=== PATIENT | female | born 1985 | race Caucasian/White ===

== ENCOUNTER 2019-12-28 | Outpatient (REF) | payer OTHER, SELFPAY | END 2019-12-28 00:01 | disposition home or self-care (01) | LOC: HO.LNP | PROVIDERS: Visit Provider Nurse Practitioner Family | DX: N39.0 Urinary tract infection, site not specified (principal) | CPT/HCPCS: 87086; 87088; 87186 ==

== ENCOUNTER 2020-04-12 08:34 | Outpatient (REF) | payer OTHER, SELFPAY ==
[2020-04-12 09:49] LABS: Hematocrit 41.8 % (37-47); Hemoglobin 13.7 g/dl (12.0-16.0)
[2020-04-12 10:29] LABS: Alanine Aminotransferase 15 U/L (0-31); Albumin Level 4.2 g/dL (3.5-5.0); Alkaline Phosphatase 80 U/L (39-117); Anion Gap 12 (12-20); Aspartate Amino Transferase 14 U/L (5-31); Bilirubin Direct 0.2 mg/dL (0.0-0.5); Bilirubin Total 0.7 mg/dL (0.0-1.0); Blood Urea Nitrogen 15 mg/dL (9-16); Calcium 9.1 mg/dL (8.4-10.2); Carbon Dioxide 28 mmol/L (22-29); Chloride 106 mmol/L (96-108); Cholesterol 199 mg/dL; Estimated Glomerular Filt Rate > 60; Glucose Fasting 95 mg/dL (60-99); HDL Cholesterol 36 mg/dL; LDL Cholesterol Calculated 146 mg/dl; Potassium 4.6 mmol/L (3.3-5.1); Sodium 141 mmol/L (135-145); Total Protein 6.8 g/dL (6.5-8.0); Triglycerides 86 mg/dL
[2020-04-15 06:12] LABS: HPV mRNA E6/E7 rflx Not Detected (Not Detected)
== END 2020-04-12 08:35 | disposition home or self-care (01) ==
LOC: HO.LAB 08:34
PROVIDERS: Absent Provider Internal Medicine; PCP Internal Medicine; Visit Provider Obstetrics & Gynecology
DX: Z01.411 Encounter for gynecological examination (general) (routine) with abnormal findings (principal); Z00.01 Encounter for general adult medical examination with abnormal findings; Z11.51 Encounter for screening for human papillomavirus (HPV); D21.9 Benign neoplasm of connective and other soft tissue, unspecified; N63.10 Unspecified lump in the right breast, unspecified quadrant; R20.2 Paresthesia of skin
CPT/HCPCS: 36415; 80048; 80061; 80076; 85014; 85018; 87624; 88142

== ENCOUNTER 2020-04-19 13:58 | Outpatient (REF) | payer OTHER, SELFPAY ==
--- NOTE | ~2020-04-19 | US_ITS ---
EXAMINATION: ULTRASOUND PELVIS COMPLETE. CLINICAL INFORMATION: Benign neoplasm of connective soft tissue. COMPARISON: Ultrasound pelvis 10/06/2017 TECHNIQUE: Transabdominal and transvaginal ultrasound of the pelvis is performed. FINDINGS: The uterus is anteverted and anteflexed measuring 10.0 cm in length, 3.4 cm in AP and 5.0 cm in transverse dimension. The endometrial thickness is 0.56 cm. There is a hypoechoic lesion in the right fundus measuring 1.7 x 1.2 x 1.2 cm. Previously it measured 1.6 x 1.2 x 1.4 cm. There are small nabothian cysts seen in the cervix. The right ovary measures 3.7 x 2.8 x 2.9 cm and volume 15.7 mL. It appears unremarkable. Previously right ovary measured 3.9 x 2.7 x 3.6 cm and 20.2 mL volume. Left ovary measures 3.2 x 1.5 x 2.2 cm and volume 5.5 mL. There is an echogenic corpus luteal scar measuring 0.6 x 0.4 x 0.4 cm. Previously left ovary measures 4.0 x 1.9 x 2.8 cm. There is a small amount of free fluid in the cul-de-sac. US/US pelvic complete IMPRESSION: 1. Small uterine fibroid. 2. Small nabothian cysts in the cervix. 3. Echogenic corpus luteal scar measuring 0.6 x 0.4 x 0.4 cm in left ovary.
--- NOTE | ~2020-04-19 | US_ITS ---
EXAMINATION: ULTRASOUND PELVIS COMPLETE. CLINICAL INFORMATION: Benign neoplasm of connective soft tissue. COMPARISON: Ultrasound pelvis 10/06/2017 TECHNIQUE: Transabdominal and transvaginal ultrasound of the pelvis is performed. FINDINGS: The uterus is anteverted and anteflexed measuring 10.0 cm in length, 3.4 cm in AP and 5.0 cm in transverse dimension. The endometrial thickness is 0.56 cm. There is a hypoechoic lesion in the right fundus measuring 1.7 x 1.2 x 1.2 cm. Previously it measured 1.6 x 1.2 x 1.4 cm. There are small nabothian cysts seen in the cervix. The right ovary measures 3.7 x 2.8 x 2.9 cm and volume 15.7 mL. It appears unremarkable. Previously right ovary measured 3.9 x 2.7 x 3.6 cm and 20.2 mL volume. Left ovary measures 3.2 x 1.5 x 2.2 cm and volume 5.5 mL. There is an echogenic corpus luteal scar measuring 0.6 x 0.4 x 0.4 cm. Previously left ovary measures 4.0 x 1.9 x 2.8 cm. There is a small amount of free fluid in the cul-de-sac. US/US transvaginal IMPRESSION: 1. Small uterine fibroid. 2. Small nabothian cysts in the cervix. 3. Echogenic corpus luteal scar measuring 0.6 x 0.4 x 0.4 cm in left ovary.
== END 2020-04-19 13:59 | disposition home or self-care (01) ==
LOC: HO.US 13:58
PROVIDERS: Visit Provider Obstetrics & Gynecology
DX: D21.9 Benign neoplasm of connective and other soft tissue, unspecified (principal)
CPT/HCPCS: 76830; 76856

== ENCOUNTER → 2020-04-26 14:16 | Outpatient (BNVA) | payer OTHER, SELFPAY | PROVIDERS: PCP Internal Medicine; Visit Provider Obstetrics & Gynecology ==

== ENCOUNTER 2020-05-09 13:46 | Outpatient (REF) | payer OTHER, SELFPAY ==
--- NOTE | ~2020-05-09 | US_ITS ---
EXAMINATION: RIGHT BREAST ULTRASOUND CLINICAL INFORMATION: Lump 10:00 position right breast COMPARISON: Ultrasound of July 28, 2008 TECHNIQUE: Targeted ultrasound evaluation about the lateral aspect of the right breast FINDINGS: Targeted right breast ultrasound does not demonstrate any abnormal cystic or solid mass. No region of abnormal distal sound shadowing is seen. There is dense breast parenchyma present in region of palpable abnormality. Results are discussed with the patient at time of visit. US/US breast RT limited IMPRESSION: No suspicious right breast mass is identified. Probably benign left breast calcifications. Probably benign asymmetric parenchymal pattern inferior aspect of the left breast which can be reimaged at time of 6 month follow-up calcifications. ASSESSMENT: BI-RADS 3: Probably Benign RECOMMENDATION: Diagnostic mammography in 6 months. Left breast. Clinical follow-up for right breast lump.
--- NOTE | ~2020-05-09 | MM_ITS ---
EXAMINATION: MM DIAGNOSTIC DIGITAL BREAST TOMOSYNTHESIS, BILATERAL TARGETED RIGHT BREAST ULTRASOUND CLINICAL INFORMATION: Right breast lump. The lifetime risk of breast cancer based on the Tyrer-Cuzick Model is 12.1%. COMPARISON: Mammography: Ultrasound of 07/28/2008. TECHNIQUE: Digital breast tomosynthesis is performed in both the craniocaudal and mediolateral oblique views along with computer-aided detection (CAD). Synthesized 2D images are generated from the tomosynthesis. Additional spot magnification views of the left breast in craniocaudal and 90 degree mediolateral views performed. FINDINGS: The breasts are extremely dense, which lowers the sensitivity of mammography (ACR BI-RADS breast composition Category d). The right breast demonstrates normal parenchymal pattern without new abnormal dominant mass or suspicious grouping of microcalcifications. No region of architectural distortion is seen within the right breast. Within the left breast there are some loosely grouped calcifications within the lateral aspect for which spot magnification views were performed. There are no linear or branching forms. No change in characteristic to suggest tea-cupping with milk of calcium is seen. There is question of some architectural distortion about the inferior aspect of the left breast on the 90 degree spot magnification views but which on other imaging appears to represent superimposition of fibroglandular tissue. Both of these findings can be followed up with 6 month left breast mammogram to include spot magnification views. Targeted right breast ultrasound does not demonstrate any abnormal cystic or solid mass. No region of abnormal distal sound shadowing is seen. There is dense breast parenchyma present in region of palpable abnormality. Results are discussed with the patient at time of visit. MM/MM tomosynthesis diagnostic BI IMPRESSION: No suspicious right breast mass is identified. Probably benign left breast calcifications. Probably benign asymmetric parenchymal pattern inferior aspect of left breast which can be reimaged at time of six-month follow-up calcifications. ASSESSMENT: BI-RADS 3: Probably Benign. RECOMMENDATION: Diagnostic mammography in six months left breast. Clinical followup for right breast lump. This patient's information was entered into a reminder system with a target due date for their next mammogram.
== END 2020-05-09 13:47 | disposition home or self-care (01) ==
LOC: HO.MAMMO 13:46
PROVIDERS: Visit Provider Obstetrics & Gynecology
DX: N63.11 Unspecified lump in the right breast, upper outer quadrant (principal)
CPT/HCPCS: 76641; 76642; 77062; 77066

== ENCOUNTER → 2020-05-17 13:19 | Outpatient (BNVA) | payer OTHER, SELFPAY | PROVIDERS: PCP Internal Medicine; Visit Provider Surgery ==

== ENCOUNTER 2020-10-12 10:56 | Outpatient (REF) | payer OTHER, SELFPAY ==
--- NOTE | ~2020-10-12 | MM_ITS ---
EXAMINATION: MM DIAGNOSTIC DIGITAL BREAST TOMOSYNTHESIS, LEFT CLINICAL INFORMATION: Short interval six-month follow-up diagnostic imaging for calcifications central outer left breast and question of asymmetric density lower breast. Age 35. No known family history breast cancer. The lifetime risk of breast cancer based on the Tyrer-Cuzick Model is 11%. COMPARISON: Mammography: 05/09/2020 (diagnostic, BI-RADS 3). TECHNIQUE: Digital breast tomosynthesis is performed in both the craniocaudal and mediolateral oblique views along with computer-aided detection (CAD). Synthesized 2D images are generated from the tomosynthesis. Additional magnification CC and magnification ML views are obtained. FINDINGS: The breasts are heterogeneously dense, which may obscure small masses (ACR BI-RADS breast composition Category c). There is no architectural abnormality. There is no interval mass or developing density. Punctate calcifications central and outer left breast are stable from prior diagnostic exam and will be reassessed again in 6 months at 12 month follow-up exam. The axilla and skin contours are unremarkable. Results are provided to the patient at time of visit by the technologist. MM/MM tomosynthesis diagnostic LT IMPRESSION: 1. No architectural abnormality. 2. Probable benign punctate left breast calcifications stable from prior diagnostic exam. ASSESSMENT: BI-RADS 3: Probably Benign RECOMMENDATION: Diagnostic mammography in 6 months to include magnification views left breast. This patient's information was entered into a reminder system with a target due date for their next mammogram.
== END 2020-10-12 10:57 | disposition home or self-care (01) ==
LOC: HO.MAMMO 10:56
PROVIDERS: PCP Internal Medicine; Visit Provider Obstetrics & Gynecology
DX: N64.89 Other specified disorders of breast (principal); R30.0 Dysuria
CPT/HCPCS: 77061; 77065; 87086; 87088; 87186

== ENCOUNTER 2020-11-29 10:26 | Emergency (ER) | payer OTHER, SELFPAY ==
--- NOTE | ~2020-11-29 | XR_ITS ---
EXAMINATION: XR CHEST CLINICAL INFORMATION: Cough COMPARISON: CXR from 07/31/2009 TECHNIQUE: Frontal view of the chest was obtained. FINDINGS: Lungs are well-inflated and clear. Trachea is midline in position. No interstitial disease, consolidation or mass. No pulmonary edema, pleural effusion or pneumothorax. Cardiac silhouette and pulmonary vessels are normal in size. The mediastinum and jose have normal contour. The right diaphragm is slightly elevated and has normal contour. The visualized bones, and upper abdomen, are unremarkable. XR/XR chest 1V IMPRESSION: No evidence of pneumonia. No acute cardiopulmonary abnormality.
[2020-11-29 10:41] VITALS: BP 113/49; PULSE 87; RESP 19; TEMP 36.1; O2SAT 99
--- NOTE | 2020-11-29 10:55 | PC.NURSE ---
pt states head cold 2 weeks ago. Had Covid in September. Discussed vaccination. Pt with cough, denies fevers. Lungs with diminished BS R>L. Awaiting provider eval.
[2020-11-29 11:13] LABS: COVID-19 Test Negative (Negative)
--- NOTE | 2020-11-29 11:26 | ED.URI ---
HPI - URI/Sore Throat General Chief Complaint: Upper Respiratory Symptoms Stated Complaint: COUGH CHEST TIGHTNESS Time Seen by Provider: 11/29/20 11:23 Source: patient Mode of arrival: ambulatory Limitations: no limitations History of Present Illness MD elicited complaint: cough and other (URI symptoms) Pertinent past history: other (COVID in september) Onset (ago): day(s) (several) Consistency: constant Severity: moderate Able to tolerate fluids by mouth: Yes Exacerbating factors: nothing Relieving factors: nothing Associated symptoms: rhinorrhea, cough and shortness of breath Treatments prior to arrival: none Related Data Previous Rx's Medication Instructions Recorded sulfamethoxazole 800 1 tab PO BID #14 tab 10/12/20 mg-trimethoprim 160 mg tablet (Bactrim DS) amoxicillin 875 mg-potassium 1 tab PO BID #14 tab 11/29/20 clavulanate 125 mg tablet (Augmentin) prednisone 20 mg tablet 40 mg PO DAILY 4 Days #8 tab 11/29/20 Allergies Allergy/AdvReac Type Severity Reaction Status Date / Time No Known Allergies Allergy Verified 11/29/20 10:41 [No Known Allergies*] Review of Systems Review of Systems: Constitutional : No Fever, No Chills ENT/Mouth : No Hoarseness, No sore throat, No Rhinorrhea Eyes: No Redness, No Discharge, No Vision Changes Cardiovascular : No Chest Pain, positive SOB, positive Dyspnea on Exertion, No Edema Respiratory : positive Cough, No Sputum, positive Wheezing, Gastrointestinal : No Nausea, No Vomiting, No Diarrhea, No abdominal Pain Genitourinary : No Dysuria, No Hematuria Musculoskeletal : No joint pain, No Myalgias Skin : No rash Neuro : No Weakness, No Numbness, No Headache Psych : No anxiety, depression Heme/Lymph: No Bruising, No Bleeding Endocrine : No Polyuria, No Polydipsia All other systems reviewed and are negative PMFSH Past Medical History Attestation statement: The following information was validated with the patient. Surgical History History of section History of tonsillectomy Family History Family History Father Hepatitis HIV (human immunodeficiency virus infection) Mother No problems noted. Maternal Grandmother Diabetes mellitus Skin cancer Maternal Grandfather Throat cancer Paternal Grandmother Diabetes mellitus Paternal Grandfather Diabetes mellitus Sister No problems noted. Sister No problems noted. Social History Social History Alcohol intake: current Alcohol intake frequency: holidays/special occasions only Patient Tobacco Use Status: Never used Tobacco Advance Directives: No Physical Exam Vital Signs: Vital Signs: Last Vital Signs Temp 97.0 F 11/29/20 10:41 Pulse 87 11/29/20 10:41 Resp 19 11/29/20 10:41 BP 113/49 L 11/29/20 10:41 Pulse Ox 99 11/29/20 10:41 Body Mass Index 0.2 Appearance: Alert. Oriented X3. No acute distress. Eyes: Pupils equal, round and reactive to light. ENT: Pharynx normal. Neck: Normal inspection. Neck supple. CVS: Normal heart rate and rhythm. Pulses normal. Respiratory: No respiratory distress. Breath sounds mild end exp wheezes and rhonchi no distress Abdomen: Soft and nontender. Skin: Skin warm and dry. Normal skin color. Normal skin turgor. Extremities: No lower extremity edema. No calf ttp Neuro: Oriented X 3. No motor deficit. No sensory deficit. MDM - URI/Sore Throat MDM Narrative Medical decision making narrative: 35 yo female with a cough here with some wheezing and symptoms for the last several days - at this time will need CXR, COVID swab, INH / steroids/ augmentin suspect bronchitis at this time - no hypoxia Lab Data Labs: Lab Results 11/29/20 Range/Units 10:46 COVID-19 (JOHN) Negative (Negative) COVID-19 Clin Com See Note Discharge Plan Discharge Clinical Impression: Bronchitis Patient Disposition: Home, Self-Care Instructions: Acute Bronchitis (ED) Additional Instructions: return to ED for any worsening symptoms or concerns USE INHALER 2 PUFFS EVERY 4 HOURS FOR COUGH AND WHEEZING NEGATIVE FOR COVID Prescriptions: New prednisone 20 mg tablet 40 mg PO DAILY 4 Days Qty: 8 RF: 0 amoxicillin-pot clavulanate [Augmentin] 875-125 mg tablet 1 tab PO BID Qty: 14 RF: 0 No Action sulfamethoxazole-trimethoprim [Bactrim DS] 800-160 mg tablet 1 tab PO BID Qty: 14 RF: 0 Referrals: Nedra York MD [Primary Care Provider] - 2 days (IF NOT BETTER) Stand Alone Forms: Work/School Release
[2020-11-29] MEDS: Amoxicillin/Potassium Clav 875 MG TABLET PO (12:01)
[2020-11-29] MEDS: Albuterol Sulfate 90 MCG 8 GM INHALER 2 PUFF INHALE (12:01)
[2020-11-29] MEDS: predniSONE 20 MG TABLET 40 MG PO (12:01)
== END 2020-11-29 12:38 | disposition home or self-care (01) ==
PROVIDERS: Emergency Provider Emergency Medicine; PCP Internal Medicine
DX: J40 Bronchitis, not specified as acute or chronic (principal); Z20.822 Contact with and (suspected) exposure to COVID-19
CPT/HCPCS: 36415; 71045; 87635; 99282; 99284

== ENCOUNTER 2020-12-14 22:00 | Emergency (ER) | payer OTHER, SELFPAY ==
[2020-12-14 22:27] VITALS: BP 126/75; PULSE 98; RESP 18; TEMP 36.8; O2SAT 95; BMI 26.5
[2020-12-14 22:54] LABS: COVID-19 Test Negative (Negative); IDNOW Serial# 55D5AD1C
--- NOTE | 2020-12-14 23:28 | ED_ITS ---
HPI - URI/Sore Throat General Chief Complaint: Upper Respiratory Symptoms Stated Complaint: ?Bronchitis Time Seen by Provider: 12/14/20 23:14 Source: patient Mode of arrival: ambulatory Limitations: no limitations History of Present Illness HPI Narrative: Patient comes emergency room complaining of chest tightness, intermittent wheezing. Patient states that since she was diagnosed with COVID- 19, she has had multiple episodes asthma like exacerbations, patient does not have a diagnosis of asthma. Patient states that 3 weeks ago she finished a course of antibiotics, prednisone and recently ran out of albuterol. Patient denies chest pain, no shortness of breath at this time. Related Data Previous Rx's Medication Instructions Recorded sulfamethoxazole 800 1 tab PO BID #14 tab 10/12/20 mg-trimethoprim 160 mg tablet (Bactrim DS) amoxicillin 875 mg-potassium 1 tab PO BID #14 tab 11/29/20 clavulanate 125 mg tablet (Augmentin) prednisone 20 mg tablet 40 mg PO DAILY 4 Days #8 tab 11/29/20 albuterol sulfate 90 mcg/actuation 2 puff INHALATION Q4-6H PRN #8.5 g 12/14/20 aerosol inhaler prednisone 50 mg tablet 50 mg PO DAILY #5 tab 12/14/20 Allergies Allergy/AdvReac Type Severity Reaction Status Date / Time No Known Allergies Allergy Verified 11/29/20 10:41 [No Known Allergies*] Review of Systems Review of Systems: Constitutional : No Weight loss, No Fever, No Chills, No Night Sweats, No Fatigue, No Malaise ENT/Mouth : No Hearing loss, No Ear Pain, No Nasal Congestion, No Sinus Pain, No Hoarseness, No sore throat, No Rhinorrhea, No Swallowing Difficulty Eyes: No Eye Pain, No Swelling, No Redness, No Foreign Body, No Discharge, No Vision Changes Cardiovascular : No Chest Pain, No SOB, No Dyspnea on Exertion, No Orthopnea, No Edema, No Palpitations Respiratory : Cough improving, intermittent wheezing, No Smoke Exposure, No Dyspnea Gastrointestinal : No Nausea, No Vomiting, No Diarrhea, No Constipation, No abdominal Pain, No Hematochezia, No Melena Genitourinary : no irregular bleeding, No Dysuria, No Urinary Frequency, No Hematuria, No Urinary Incontinence, No Urgency, No Flank Pain, No Urinary Flow Changes, No Hesitancy Musculoskeletal : No joint pain, No Myalgias, No Joint Swelling Skin : No Skin Lesions, No rash Neuro : No Weakness, No Numbness, No Paresthesias, No Loss of Consciousness, No Dizziness, No Headache Psych : No Anxiety/Panic, No Depression, No SI/HI/AH/VH, No Social Issues, Heme/Lymph: No Bruising, No Bleeding,No Lymphadenopathy Endocrine : No Polyuria, No Polydipsia, No Temperature Intolerance [facility] Past Medical History Surgical History History of section History of tonsillectomy Family History Family History Father Hepatitis HIV (human immunodeficiency virus infection) Mother No problems noted. Maternal Grandmother Diabetes mellitus Skin cancer Maternal Grandfather Throat cancer Paternal Grandmother Diabetes mellitus Paternal Grandfather Diabetes mellitus Sister No problems noted. Sister No problems noted. Social History Social History Alcohol intake: current Alcohol intake frequency: holidays/special occasions only Patient Tobacco Use Status: Never used Tobacco Advance Directives: No Advance Directives Information Provided: No Patient : No Physical Exam Vital Signs: Vital Signs: Last Vital Signs Temp 98.3 F 12/14/20 22:27 Pulse 98 12/14/20 22:27 Resp 18 12/14/20 22:27 BP 126/75 12/14/20 22:27 Pulse Ox 95 12/14/20 22:27 Body Mass Index 26.5 Const: Other: Appearance: Alert. Oriented X3. No acute distress. Eyes: Pupils equal, round and reactive to light. ENT: Pharynx normal. Neck: Normal inspection. Neck supple. No lymph nodes noted. No crepitus CVS: Normal heart rate and rhythm. Pulses normal. Normal S1 and S2 Respiratory: Bilateral mild wheezing Abdomen: Soft and nontender. No rigidity. No distention. good BS x4 Skin: Skin warm and dry. Normal skin color. Normal skin turgor. Extremities: No lower extremity edema. No lower extremity edema. No Lacerations. No Rash Neuro: Oriented X 3. No motor deficit. No sensory deficit. Moving all extermities. No slurred speech. Course Course Course Narrative: It is possible that patient may have developed asthma after she had COVID. At this time, patient does not need a breathing treatment. Patient will benefit from another course of antibiotics. MDM - URI/Sore Throat Lab Data Labs: Lab Results 12/14/20 Range/Units 22:34 COVID-19 ([facility]OHN) Negative (Negative) COVID-19 Clin Com See Note Discharge Plan Discharge Clinical Impression: Bilateral wheezing Patient Disposition: Home, Self-Care Instructions: Wheezing (ED) Additional Instructions: Please follow-up with your primary care physician tomorrow. If you have any worsening or new symptoms, please return to the emergency room or call 911 Prescriptions: New prednisone 50 mg tablet 50 mg PO DAILY Qty: 5 RF: 0 albuterol sulfate 90 mcg/actuation HFA aerosol inhaler 2 puff inhalation Q4-6H PRN (Reason: shortness of breath or wheezing) Qty: 8.5 RF: 0 No Action prednisone 20 mg tablet 40 mg PO DAILY 4 Days Qty: 8 RF: 0 amoxicillin-pot clavulanate [Augmentin] 875-125 mg tablet 1 tab PO BID Qty: 14 RF: 0 sulfamethoxazole-trimethoprim [Bactrim DS] 800-160 mg tablet 1 tab PO BID Qty: 14 RF: 0
== END 2020-12-15 00:29 | disposition home or self-care (01) ==
PROVIDERS: Emergency Provider Emergency Medicine; PCP Internal Medicine
DX: R06.2 Wheezing (principal); Z86.16 Personal history of COVID-19; Z20.822 Contact with and (suspected) exposure to COVID-19
CPT/HCPCS: 36415; 87635; 99283

== ENCOUNTER 2021-05-09 12:32 | Outpatient (REF) | payer OTHER, SELFPAY ==
--- NOTE | ~2021-05-09 | MM_ITS ---
EXAMINATION: MM DIAGNOSTIC DIGITAL BREAST TOMOSYNTHESIS, BILATERAL CLINICAL INFORMATION: 1 year follow-up probable benign calcifications central outer left breast. Age 36. TC score 11.3%. COMPARISON: Mammography: 10/12/2020, 05/09/2020 (diagnostic, BI-RADS 3). TECHNIQUE: Digital breast tomosynthesis is performed in both the craniocaudal and mediolateral oblique views along with computer-aided detection (CAD). Synthesized 2D images are generated from the tomosynthesis. Additional magnification left CC and magnification left ML views are obtained. FINDINGS: The breasts are heterogeneously dense, which may obscure small masses (ACR BI-RADS breast composition Category c). Parenchymal pattern is similar to previous exam. There is no interval mass or architectural abnormality or developing density. The benign-appearing punctate calcifications posterior 3:30 position are stable from prior diagnostic exam. There is no interval grouping or pleomorphic types or ductal distribution. Results are provided to the patient at time of visit by the technologist. MM/MM tomosynthesis diagnostic BI IMPRESSION: No significant change from prior exams. Benign-appearing punctate calcifications posterior outer left breast stable. ASSESSMENT: BI-RADS 3: Probably Benign RECOMMENDATION: Bilateral diagnostic mammography in 12 months to include magnification views left breast. This patient's information was entered into a reminder system with a target due date for their next mammogram.
== END 2021-05-09 12:33 | disposition home or self-care (01) ==
LOC: HO.MAMMO 12:32
PROVIDERS: Visit Provider Obstetrics & Gynecology
DX: R92.1 Mammographic calcification found on diagnostic imaging of breast (principal)
CPT/HCPCS: 77062; 77066

== ENCOUNTER 2021-11-23 22:46 | Emergency (ER) | payer OTHER, SELFPAY ==
--- NOTE | ~2021-11-23 | CT_ITS ---
EXAMINATION: CT ABDOMEN AND PELVIS WITH CONTRAST CLINICAL INFORMATION: Bilateral flank pain, UTI, question pyelonephritis COMPARISON: None TECHNIQUE: Multidetector volumetric images were obtained from the superior aspect of the liver through the pubic symphysis following administration 85 mL of Omnipaque 350 intravenous contrast. Sagittal and coronal reformatted images were obtained on the technologist's workstation. Oral contrast: No This CT examination was performed using dose optimization techniques as appropriate, variously including the following: *Automated exposure control *Adjustment of mA and/or kV according to patient size (this includes techniques or standardized protocols for targeted exams where dose is matched to indication/reason for exam; i.e. extremities or head) *Use of iterative reconstruction technique DLP: 479 mGy-cm FINDINGS: LUNG BASES: The visualized lung bases are unremarkable. LIVER, GALLBLADDER, AND BILIARY TREE: The liver is normal in size, shape, and attenuation. There is a nonspecific mildly hypodense lesion at the junction of segments 8 and 5 measuring 1.1 cm in diameter. No biliary ductal dilatation is present. The gallbladder is unremarkable. PANCREAS: Unremarkable. SPLEEN: Unremarkable. ADRENAL GLANDS: Unremarkable. KIDNEYS AND URETERS: Bilateral nephrograms are symmetric. No hydronephrosis or obstructing calculus. BLADDER: Partially distended with a diffusely thickened appearance. GASTROINTESTINAL TRACT: No evidence of bowel obstruction or significant wall thickening. Moderate stool throughout the colon. The appendix is unremarkable. No free fluid or free air is seen. ABDOMINAL WALL: No significant hernia is appreciated. LYMPH NODES: Normal. VASCULAR: Unremarkable. PELVIC VISCERA: Unremarkable. OSSEOUS STRUCTURES: Unremarkable. CT/CT abdomen pelvis w IV con IMPRESSION: 1. Thick-walled appearance of the urinary bladder, raising suspicion for cystitis. No specific findings in the kidneys to suggest pyelonephritis. 2. Nonspecific mildly hypodense hepatic lesion measuring 1.1 cm, which could represent a hemangioma. Further evaluation with ultrasound is recommended; if it remains indeterminate, MRI would then be advised.
[2021-11-23 22:58] VITALS: BP 146/95; PULSE 102; RESP 17; TEMP 37.1; O2SAT 98; BMI 26.5
[2021-11-23 23:28] LABS: Basophils Absolute Auto 0.1 X10*3/uL (0.0-0.2); Basophils Percent Auto 0.5 % (0-2); Eosinophils Absolute Auto 0.3 X10*3/uL (0.0-0.4); Eosinophils Percent Auto 1.5 % (0-4); Hematocrit 39.2 % (37.0-47.0); Hemoglobin 13.2 g/dl (12.0-16.0); Imm Gran Abs Auto 0.07 X10*3/uL (0.00-0.03); Imm Gran Pct Auto 0.4 % (0.0-0.4); Lymphocytes Absolute Auto 3.4 X10*3/uL (1.2-4.9); MANUAL DIFF FLAG NO; Mean Corpuscular HGB Conc 33.7 g/dl (31.0-35.0); Mean Corpuscular Volume 89.1 fL (80.0-98.0); Mean Platelet Volume 10.5 fL (9.4-12.3); Monocytes Absolute Auto 1.1 X10*3/uL (0.1-1.2); Monocytes Percent Auto 6.6 % (2-11); Neutrophils Absolute Auto 12.1 x10*3/uL (2.0-8.3); Platelet Count 282 X10*3/uL (160-400); Red Cell Distribution Width 12.8 % (11.0-16.0); White Blood Count 17.1 X10*3/uL (4.8-10.8)
[2021-11-23 23:29] LABS: Appearance Urine Turbid; Color Urine Dark Yellow; Glucose Urine UA Negative (Negative); Leukocyte Esterase Urine Large (3+) (Negative); Nitrite Urine Positive (Negative); UMIC TRIGGER UACC YES; Urine Blood Small (1+) (Negative); Urine Ketones Trace mg/dL (Negative); Urine Protein 100 (2+) mg/dL (Neg-Trace)
[2021-11-23 23:46] LABS: Anion Gap 16 (12-20); Blood Urea Nitrogen 14 mg/dL (9-16); Carbon Dioxide 24 mmol/L (22-29); Chloride 106 mmol/L (96-108); Creatinine Clr Calc Pharmacy 101.4; Estimated Glomerular Filt Rate > 60; Glucose Random 95 mg/dL (60-115); Potassium 3.8 mmol/L (3.3-5.1); Sodium 142 mmol/L (135-145)
[2021-11-23 23:49] LABS: Bacteria Urine 3+ (None Seen); Hyaline Casts Urine 0-2 /LPF (0-2); UACC Culture Trigger YES; WBC Urine >50 /HPF (0-5)
[2021-11-24 00:10] VITALS: BP 123/65; PULSE 91; RESP 18; TEMP 36.7
--- NOTE | 2021-11-24 00:13 | ED.FEMALEGU ---
HPI - Female Genitourinary General Chief complaint: Urogenital-Female Stated complaint: UTI?? Time Seen by Provider: 11/24/21 00:12 Source: patient Mode of arrival: ambulatory Limitations: no limitations History of Present Illness HPI Narrative: This is a 36-year-old female no significant medical history presents to the emergency department with left flank pain, urinary frequency, urgency, dysuria and slight urinary incontinence x1 week. Patient reports that she has been taking [id number] medications with little to no relief. She tells me she is not sure if she has a UTI or yeast infection she has had both in the past. She tells me she is very uncomfortable. Denies chest pain, shortness of breath, nausea, vomiting, abdominal pain, weakness, headache, dizziness, fevers, chills MD elicited complaint: UTI Related Data Previous Rx's Medication Instructions Recorded sulfamethoxazole 800 1 tab PO BID #14 tabs 10/12/20 mg-trimethoprim 160 mg tablet (Bactrim DS) amoxicillin 875 mg-potassium 1 tab PO BID #14 tabs 11/29/20 clavulanate 125 mg tablet (Augmentin) prednisone 20 mg tablet 40 mg PO DAILY 4 days #8 tabs 11/29/20 albuterol sulfate 90 mcg/actuation 2 puff inhalation Q4-6H PRN 12/14/20 aerosol inhaler shortness of breath or wheezing #8.5 grams prednisone 50 mg tablet 50 mg PO DAILY #5 tabs 12/14/20 levofloxacin 500 mg tablet 500 mg PO DAILY 10 days #10 tabs 11/24/21 phenazopyridine 100 mg tablet 200 mg PO TID 2 days #6 tabs 11/24/21 (Pyridium) Allergies Allergy/AdvReac Type Severity Reaction Status Date / Time No Known Allergies Allergy Verified 11/23/21 23:04 [No Known Allergies*] Review of Systems Review of Systems: Constitutional : No Weight loss, No Fever, No Chills, No Fatigue, No Malaise ENT/Mouth : No sore throat, No Rhinorrhea Eyes: No Eye Pain, No Swelling, No Redness Cardiovascular : No Chest Pain, No SOB, No Dyspnea on Exertion, No Orthopnea, No Edema, No Palpitations Respiratory : No Cough, No Sputum, No Wheezing Gastrointestinal : No Nausea, No Vomiting, No Diarrhea, No Constipation, No abdominal Pain, No Hematochezia, No Melena Genitourinary : + Dysuria, + Urinary Frequency, No Hematuria, Musculoskeletal : No joint pain, No Myalgias, No Joint Swelling, + flank pain Skin : No Skin Lesions, No rash Neuro : No Weakness, No Numbness, No Dizziness, No Headache Psych : No Anxiety/Panic, No Depression All other systems reviewed and are negative Yes all other systems are reviewed and are negative [facility] Past Medical History Attestation statement: The following information was validated with the patient. Source: old records reviewed and nursing notes reviewed Surgical History History of section History of tonsillectomy Family History Family History Father Hepatitis HIV (human immunodeficiency virus infection) Mother No problems noted. Maternal Grandmother Diabetes mellitus Skin cancer Maternal Grandfather Throat cancer Paternal Grandmother Diabetes mellitus Paternal Grandfather Diabetes mellitus Sister No problems noted. Sister No problems noted. Social History Social History Alcohol intake: current Alcohol intake frequency: holidays/special occasions only Patient Tobacco Use Status: Never used Tobacco Advance Directives: No Advance Directives Information Provided: Yes Patient : No Physical Exam Vital Signs: Vital Signs: Last Vital Signs Temp 98.0 F 11/24/21 00:10 Pulse 91 11/24/21 00:10 Resp 18 11/24/21 00:10 BP 123/65 11/24/21 00:10 Pulse Ox 98 11/23/21 22:58 O2 Del Method 11/24/21 00:10 O2 Flow Rate 100 11/24/21 00:10 BMI result Body Mass Index 26.5 vss Appearance: Alert.? Oriented X3.? No acute distress.? Head: Normocephalic, atraumatic, no step-offs or deformities Eyes: Pupils equal, round and reactive to light.? ENT: Pharynx normal.??External ears normal, TMs normal bilaterally and EAC's normal. No pain with manipulation of external ears bilaterally. No mastoid tenderness. Neck: Normal inspection.? Neck supple.? CVS: Normal heart rate and rhythm.? Pulses normal.? Respiratory: No respiratory distress.? Breath sounds normal.? Abdomen: Soft and + suprapubic abd discomfort . Normal BS .? Skin: Skin warm and dry.? Normal skin color.? Normal skin turgor.? Extremities: No lower extremity edema.? No calf ttp. 5/5 strength to bilateral upper and lower extremities Back: + CVA tenderness to L side Neuro: Oriented X 3.? No motor deficit.? No sensory deficit. CN 2-12 intact Course Reevaluation(s) Reevaluation #1: CBC with elevated white blood cell count, chemistry with no acute electrolyte abnormalities requiring intervention. UA concerning for UTI. Based off patient history and physical examination there is concerns for pyelonephritis, CT of the abdomen and pelvis with contrast pending. Time: 00:18 Reevaluation #2: CT of the abdomen concerning for cystitis. No signs of pyelo on imaging. Mild hypodense hepatic lesion measuring 1.1 cm which could represent hemangioma, educated patient on this diagnosis. Advised her to follow-up with PCP in regards to this. At this time patient will be discharged home on Levaquin. I selected this agent because the will cover for pyelonephritis. At this time I feel comfortable with discharge home with prompt PCP follow-up. Advised to return with any new or worsening symptoms. Educated patient on worrisome signs and symptoms of tendon rupture related to Levaquin, outlined on discharge. Comfortable discharge home. Time: 01:37 MDM - Female Genitourinary MDM Narrative Medical decision making narrative: [id number] 36-year-old female presents to the emergency department with UTI symptoms and left-sided flank pain times a week. Physical examination with left-sided CVA tenderness. Suprapubic abdominal discomfort Concerns for pyelonephritis, UTI. Unlikely obstructing uropathy. Plan at this time is to obtain a urine, basic labs. Medical Records Attestation: I reviewed the patient's medical records. Lab Data Attestation: I reviewed the patient's lab results. Result diagrams: 11/23/21 23:24 11/23/21 23:18 Labs: Lab Results 11/23/21 11/23/21 11/23/21 Range/Units 23:11 23:18 23:24 WBC 17.1 H (4.8-10.8) X10*3/uL RBC 4.40 (4.20-5.50) X10*6/uL Hgb 13.2 (12.0-16.0) g/dl Hct 39.2 (37.0-47.0) % MCV 89.1 (80.0-98.0) fL MCH 30.0 (27.0-33.0) pg MCHC 33.7 (31.0-35.0) g/dl RDW 12.8 (11.0-16.0) % Plt Count 282 (160-400) X10*3/uL MPV 10.5 (9.4-12.3) fL Immature Gran % (Auto) 0.4 (0.0-0.4) % Neut % (Auto) 71.0 (45-73) % Lymph % (Auto) 20.0 (20-40) % [place] % (Auto) 6.6 (2-11) % Eos % (Auto) 1.5 (0-4) % Baso % (Auto) 0.5 (0-2) % Lymph # (Auto) 3.4 (1.2-4.9) X10*3/uL [place] # (Auto) 1.1 (0.1-1.2) X10*3/uL Eos # (Auto) 0.3 (0.0-0.4) X10*3/uL Baso # (Auto) 0.1 (0.0-0.2) X10*3/uL Abs Immat Gran (auto) 0.07 H (0.00-0.03) X10*3/uL Absolute Neuts (auto) 12.1 H (2.0-8.3) x10*3/uL Absolute Nucleated RBC 0.000 (0.0-0.012) X10*3/uL Nucleated RBC % (auto) 0.0 (0.0-0.2) /100WBC Sodium 142 (135-145) mmol/L Potassium 3.8 (3.3-5.1) mmol/L Chloride 106 (96-108) mmol/L Carbon Dioxide 24 (22-29) mmol/L Anion Gap 16 (12-20) BUN 14 (9-16) mg/dL Creatinine 0.71 (0.5-1.4) mg/dL Estim Creat Clear Calc 101.4 Estimated GFR > 60 Random Glucose 95 (60-115) mg/dL Calcium 9.0 (8.4-10.2) mg/dL Beta HCG, Quant < 2 mIU/mL Urine Color Dark Yellow Urine Appearance Turbid Urine pH 6.0 (5.0-9.0) Ur Specific [place] 1.020 (1.005-1.025) Urine Protein 100 (2+) H (Neg-Trace) mg/dL Urine Glucose (UA) Negative (Negative) mg/dL Urine Ketones Trace (Negative) mg/dL Urine Blood Small (1+) H (Negative) Urine Nitrite Positive H (Negative) Ur Leukocyte Esterase Large (3+) H (Negative) Urine RBC 11-20 H (0-2) /HPF Urine WBC >50 H (0-5) /HPF Ur Squamous Epith Cells 6-10 (0-2) /HPF Urine Bacteria 3+ (None Seen) Hyaline Casts 0-2 (0-2) /LPF COVID-19 (JOHN) (Negative) COVID-19 Clin Com 11/24/21 Range/Units 00:59 WBC (4.8-10.8) X10*3/uL RBC (4.20-5.50) X10*6/uL Hgb (12.0-16.0) g/dl Hct (37.0-47.0) % MCV (80.0-98.0) fL MCH (27.0-33.0) pg MCHC (31.0-35.0) g/dl RDW (11.0-16.0) % Plt Count (160-400) X10*3/uL MPV (9.4-12.3) fL Immature Gran % (Auto) (0.0-0.4) % Neut % (Auto) (45-73) % Lymph % (Auto) (20-40) % [place] % (Auto) (2-11) % Eos % (Auto) (0-4) % Baso % (Auto) (0-2) % Lymph # (Auto) (1.2-4.9) X10*3/uL [place] # (Auto) (0.1-1.2) X10*3/uL Eos # (Auto) (0.0-0.4) X10*3/uL Baso # (Auto) (0.0-0.2) X10*3/uL Abs Immat Gran (auto) (0.00-0.03) X10*3/uL Absolute Neuts (auto) (2.0-8.3) x10*3/uL Absolute Nucleated RBC (0.0-0.012) X10*3/uL Nucleated RBC % (auto) (0.0-0.2) /100WBC Sodium (135-145) mmol/L Potassium (3.3-5.1) mmol/L Chloride (96-108) mmol/L Carbon Dioxide (22-29) mmol/L Anion Gap (12-20) BUN (9-16) mg/dL Creatinine (0.5-1.4) mg/dL Estim Creat Clear Calc Estimated GFR Random Glucose (60-115) mg/dL Calcium (8.4-10.2) mg/dL Beta HCG, Quant mIU/mL Urine Color Urine Appearance Urine pH (5.0-9.0) Ur Specific [place] (1.005-1.025) Urine Protein (Neg-Trace) mg/dL Urine Glucose (UA) (Negative) mg/dL Urine Ketones (Negative) mg/dL Urine Blood (Negative) Urine Nitrite (Negative) Ur Leukocyte Esterase (Negative) Urine RBC (0-2) /HPF Urine WBC (0-5) /HPF Ur Squamous Epith Cells (0-2) /HPF Urine Bacteria (None Seen) Hyaline Casts (0-2) /LPF COVID-19 (JOHN) Negative (Negative) COVID-19 Clin Com See Note Critical Care Time Critical Care Time Critical Care Time: No Discharge Plan Discharge Clinical Impression: UTI (urinary tract infection), Flank pain Patient Disposition: Home, Self-Care Instructions: Urinary Tract Infection in Women (ED), Flank Pain (ED) Additional Instructions: Take your medications as prescribed. If you were prescribed antibiotics today, it is important that you take your medication to their entirety, do not skip any doses, do not finish them early. Follow-up with your primary care provider this week. Return to the emergency department with new or worsening symptoms. Such as fevers, chills, chest pain, shortness of breath, nausea, vomiting, dizziness, headache, vision changes, lethargy In case of emergency call 911 Your being sent home on an antibiotic called Neville this antibiotic belongs to a family called fluoroquinolones, this type of antibiotic can cause a rare side effect which is tendon rupture, I advise you not participate in any physical activity for 2-3 weeks. Do not exercise while taking this antibiotic. If he started having joint pain or feel like he ruptured a tendon please be evaluated by medical professional immediately. Please return to the emergency department with any new or worsening symptoms. Urology information below if symptoms persist. CT/CT abdomen pelvis w IV con IMPRESSION: 1.? Thick-walled appearance of the urinary bladder, raising suspicion for cystitis. No specific findings in the kidneys to suggest pyelonephritis. 2.? Nonspecific mildly hypodense hepatic lesion measuring 1.1 cm, which could represent a hemangioma. Further evaluation with ultrasound is recommended; if it remains indeterminate, MRI would then be advised. ? #2 on the results follow up with PCP about this share results with them Prescriptions: New levofloxacin 500 mg tablet 500 mg PO DAILY 10 Days Qty: 10 0RF phenazopyridine [Pyridium] 100 mg tablet 200 mg PO TID 2 Days Qty: 6 0RF No Action prednisone 20 mg tablet 40 mg PO DAILY 4 Days Qty: 8 0RF amoxicillin-pot clavulanate [Augmentin] 875-125 mg tablet 1 tab PO BID Qty: 14 0RF prednisone 50 mg tablet 50 mg PO DAILY Qty: 5 0RF albuterol sulfate 90 mcg/actuation HFA aerosol inhaler 2 puff inhalation Q4-6H PRN (Reason: shortness of breath or wheezing) Qty: 8.5 0RF sulfamethoxazole-trimethoprim [Bactrim DS] 800-160 mg tablet 1 tab PO BID Qty: 14 0RF Referrals: Roverto Shaikh MD [Physician] - 3 days Nedra York MD [Physician] - 2 days Sylvia York MD [Primary Care Provider] - 2 days Stand Alone Forms: Work/School Release
[2021-11-24 00:37] LABS: HCG Quantitative < 2 mIU/mL
[2021-11-24] MEDS: iohexoL 350 MG/ML 100 ML INFUS..BTL 85 ML IV (00:55)
[2021-11-24] MEDS: cefTRIAXone sodium 1 GM in 0.9 % Sodium Chloride 50 ML IV (01:04)
[2021-11-24 01:26] LABS: COVID-19 Test Negative (Negative)
[2021-11-24] MEDS: Ketorolac Tromethamine 15 MG/ML VIAL 30 MG IVPUSH (01:56)
[2021-11-24] MEDS: 0.9 % Sodium Chloride 1,000 ML 999 ML IV (01:57)
== END 2021-11-24 03:12 | disposition home or self-care (01) ==
PROVIDERS: Physician Assistant; Emergency Provider Emergency Medicine Emergency Medical Services; PCP Psychiatry & Neurology Neurology
DX: N39.0 Urinary tract infection, site not specified (principal); B95.7 Other staphylococcus as the cause of diseases classified elsewhere; Z20.822 Contact with and (suspected) exposure to COVID-19; K76.9 Liver disease, unspecified
CPT/HCPCS: 36415; 74177; 80048; 81001; 84702; 85025; 87086; 87088; 87186; 87635; 96365; 96375; 99284; J0696; J1885; Q9967

== ENCOUNTER 2022-03-20 15:30 | Outpatient (REF) | payer OTHER, SELFPAY | END 2022-03-20 15:31 | disposition home or self-care (01) | LOC: HO.LNP 15:30 | PROVIDERS: Visit Provider Internal Medicine | DX: R30.0 Dysuria (principal) | CPT/HCPCS: 87086; 87088; 87186 ==

== ENCOUNTER 2022-04-17 11:55 | Outpatient (REF) | payer OTHER, SELFPAY | END 2022-04-17 11:56 | disposition home or self-care (01) | LOC: HO.LAB 11:55 | PROVIDERS: Visit Provider Nurse Practitioner Family | DX: Z13.89 Encounter for screening for other disorder (principal) ==

== ENCOUNTER 2022-05-17 14:58 | Outpatient (REF) | payer OTHER, SELFPAY ==
--- NOTE | ~2022-05-17 | MM_ITS ---
EXAMINATION: MM DIAGNOSTIC DIGITAL BREAST TOMOSYNTHESIS, BILATERAL CLINICAL INFORMATION: Screening right breast study. Follow-up calcifications left breast. COMPARISON: Mammography: 05/09/2021 and studies dating back to 05/09/2020. TECHNIQUE: Digital breast tomosynthesis is performed in both the craniocaudal and mediolateral oblique views along with computer-aided detection (CAD). Synthesized 2D images are generated from the tomosynthesis. Additional spot magnification views of the left breast performed as well as right breast exaggerated craniocaudal view. FINDINGS: The breasts are extremely dense, which lowers the sensitivity of mammography (ACR BI-RADS breast composition Category d). BILATERAL BREASTS: There is a stable appearance of the calcifications within the left breast out to greater than 2 years. No new abnormal dominant mass or more suspicious grouping of microcalcifications is seen within either breast. Patient to return to routine screening mammography. Results are provided to the patient at time of visit by the technologist. MM/MM tomosynthesis diagnostic BI IMPRESSION: There are no significant changes from prior study. Stable left breast calcifications. ASSESSMENT: BI-RADS 2: Benign RECOMMENDATION: Routine annual mammography screening due in 12 months. This patient's information was entered into a reminder system with a target due date for their next mammogram.
== END 2022-05-17 14:59 | disposition home or self-care (01) ==
LOC: HO.MAMMO 14:58
PROVIDERS: PCP Internal Medicine; Visit Provider Obstetrics & Gynecology
DX: R92.1 Mammographic calcification found on diagnostic imaging of breast (principal)
CPT/HCPCS: 77062; 77066

== ENCOUNTER 2022-06-19 12:31 | Outpatient (REF) | payer OTHER, SELFPAY ==
[2022-06-19 18:13] LABS: CT PCR NOT DETECTED (Not Detect.); NG PCR NOT DETECTED (Not Detect.)
== END 2022-06-19 12:32 | disposition home or self-care (01) ==
LOC: HO.LNP 12:31
PROVIDERS: PCP Internal Medicine; Visit Provider Obstetrics & Gynecology
DX: Z01.419 Encounter for gynecological examination (general) (routine) without abnormal findings (principal); N39.41 Urge incontinence; D25.9 Leiomyoma of uterus, unspecified; D52.9 Folate deficiency anemia, unspecified; Z20.2 Contact with and (suspected) exposure to infections with a predominantly sexual mode of transmission
CPT/HCPCS: 0353U; 81003

== ENCOUNTER 2022-06-26 14:24 | Outpatient (REF) | payer OTHER, SELFPAY ==
--- NOTE | ~2022-06-26 | US_ITS ---
EXAMINATION: US PELVIS CLINICAL INFORMATION: Uterine fibroid. 37-year-old, LMP one month ago COMPARISON: 04/19/2020 TECHNIQUE: Ultrasound of the pelvis is performed using both transabdominal and transvaginal transducers along with Doppler. Transvaginal imaging is performed due to inadequate visualization transabdominally. FINDINGS: Uterus: The uterus is anteverted and measures 9.3 x 4.2 x 4.7 cm. The double wall endometrial thickness is 6 mm. The uterus is smooth in contour and has normal myometrial echogenicity. Intramural fundal fibroid measures 1.3 cm, previously measured up to 1.7 cm. Adnexa: Both ovaries are visualized. There is normal color flow to the adnexa. There is no ovarian torsion. There is no pelvic ascites or fluid collection. Right ovary measures 4.0 x 2.3 x 2.5 cm. Left ovary measures 2.5 x 1.8 x 2.5 cm. US/US pelvic and transvaginal IMPRESSION: Intramural fundal fibroid measures 1.3 cm, previously 1.7 cm.
== END 2022-06-26 14:25 | disposition home or self-care (01) ==
LOC: HO.US 14:24
PROVIDERS: PCP Internal Medicine; Visit Provider Obstetrics & Gynecology
DX: D25.9 Leiomyoma of uterus, unspecified (principal)
CPT/HCPCS: 76830; 76856

== ENCOUNTER → 2022-07-15 12:12 | Outpatient (BNVA) | payer OTHER, SELFPAY | PROVIDERS: PCP Internal Medicine; Visit Provider Obstetrics & Gynecology ==

== ENCOUNTER 2022-08-02 13:59 | Outpatient (REF) | payer OTHER, SELFPAY | END 2022-08-02 14:00 | disposition home or self-care (01) | LOC: HO.LNP 13:59 | PROVIDERS: PCP Internal Medicine; Visit Provider Nurse Practitioner Family | DX: R32 Unspecified urinary incontinence (principal); N39.0 Urinary tract infection, site not specified | CPT/HCPCS: 51798; 87086 ==

== ENCOUNTER 2022-09-11 14:30 | Outpatient (REF) | payer OTHER, SELFPAY ==
--- NOTE | ~2022-09-11 | US_ITS ---
EXAMINATION: US RETROPERITONEAL COMPLETE (RENAL) CLINICAL INFORMATION: Unspecified urinary incontinence. COMPARISON: CT abdomen and pelvis with contrast 11/24/2021. TECHNIQUE: Real-time imaging of the kidneys and bladder. FINDINGS: RIGHT KIDNEY: 10.4 x 4.8 x 5.4 cm (SAG x AP x TRV). The kidney is normal in size, contour, and echogenicity. Renal cortical thickness is normal. No calculi or focal parenchymal lesions. No hydronephrosis. LEFT KIDNEY: 10.8 x 5.1 x 4.5 cm (SAG x AP x TRV). The kidney is normal in size, contour, and echogenicity. Renal cortical thickness is normal. No hydronephrosis. 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 3 mm nonobstructing upper pole renal stone. BLADDER: Well distended and normal. Bilateral ureteral jets are demonstrated. Prevoid bladder volume is 245 mL. There is no postvoid residual. US/US retroperitoneal comp IMPRESSION: 1. A 3 mm nonobstructing left upper pole renal stone. 2. 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
== END 2022-09-11 14:31 | disposition home or self-care (01) ==
LOC: HO.US 14:30
PROVIDERS: PCP Internal Medicine; Visit Provider Nurse Practitioner Family
DX: R32 Unspecified urinary incontinence (principal); N39.0 Urinary tract infection, site not specified
CPT/HCPCS: 76770

== ENCOUNTER 2022-09-18 14:39 | Outpatient (AMB) | payer OTHER, SELFPAY ==
--- NOTE | 2022-09-18 14:44 | MHC.OFFVIS ---
Intake Intake Visit Reasons: 2m/US Intake Note: Patient is present for initial visit urinary incontinence/recurrent uti/ultrasound (imaging 09/11/22) Urology Medications: none Blood Thinner: none PVR: 0mls Final Expense Agent Required: No Accompanied by: Self / Same As Patient Allergies No Known Allergies [No Known Allergies*] Allergy (Verified 09/18/22 15:16) Medication List - Last Reconciled 09/18/22 by HUY Rios pyridoxine (vitamin B6) 100 mg PO DAILY 90 days HPI HPI Comments History of Present Illness Details Alejandra is a very pleasant 37-year-old female patient of . She presents to the office today for a follow up. Of note, patient was seen approximately 3 months ago as a new patient for recurrent urinary tract infections and ongoing urinary issues and concerns at which time a retroperitoneal ultrasound was ordered for further assessment evaluation. These results were reviewed with the patient today. Right kidney with no calculi, lesions, and or hydronephrosis noted. Left kidney with 3 mm echogenic avascular lesion which may reflect a tiny angiolipoma. A 3 mm nonobstructing upper pole renal stone is present. The bladder is well distended and normal. Pre void bladder volume is approximately 245 mL. Postvoid bladder volume is 0ml's. Patient reports to be doing and feeling well. She denies having had any recent urinary tract infections and or UTI like symptoms. She denies urinary urgency, urinary frequency, nocturia, hematuria, foul smelling urine, changes to urinary stream, flank pain, fever, and or chills. In office urinalysis results reviewed with the patient today. PVR 0 mL. Discussed at length UTI prevention and nephrolthiasis. Discussed potential causes of nephrolithiasis as well as importance of drinking plenty of water daily. She otherwise offers no issues or concerns at this time. [facility] Surgical History History of section History of tonsillectomy Family History Father Hepatitis HIV (human immunodeficiency virus infection) Mother No problems noted. Maternal Grandmother Diabetes mellitus Skin cancer Maternal Grandfather Throat cancer Paternal Grandmother Diabetes mellitus Paternal Grandfather Diabetes mellitus Sister No problems noted. Sister No problems noted. Social History Alcohol intake: current Alcohol intake frequency: holidays/special occasions only Patient Tobacco Use Status: Never used Tobacco Female Reproductive History Menstrual Age of Menarche: 12 Review of Systems Const All systems reviewed & are unremarkable except as noted in HPI and below Reports no additional complaints Eyes Reports no additional complaints ENT Reports no additional complaints Card Reports no additional complaints Resp Reports no additional complaints GI Reports no additional complaints Reports as per HPI Musc Reports no additional complaints Neuro Reports no additional complaints Psych Reports no additional complaints Endo Reports no additional complaints Laron/Lymph Reports no additional complaints Aller/Immun Reports no additional complaints Physical Exam Const General: cooperative, healthy appearing, comfortable, no acute distress, well developed, alert and awake Orientation/consciousness: patient oriented x3 Limitations: no limitations HEENT Head: Yes normal to inspection, Yes normocephalic and Yes atraumatic Ears: hearing grossly normal bilaterally Eyes General: appearance normal, both eyes and all related structures Neck Neck: Yes normal visual inspection and Yes trachea midline Chest Chest palpation & inspection: normal inspection of the chest Resp Effort & Inspection: normal respiratory effort and able to speak in complete sentences Cardio Rate: regular rate GI Inspection: Yes normal to inspection General: Yes no CVA tenderness Back/Spine/Pelvis Back: no CVA tenderness Skin General skin exam: no rashes or lesions noted Neuro General: patient oriented x3 Extrem General: Yes normal to inspection Psych Appearance: grossly normal and well kempt Mental Status: mental status grossly normal Speech and movement: Normal speech and movement present and Clear speech present Affect: normal affect Attitude: cooperative Thought process: Normal thought process present Thought content: Normal thought content present Insight: Good insight present (Psych) Judgement: Good judgement present (Psych) Office Procedures Post Void Residual Post Residual Void Post Void Residual (PVR): 0 [id number] Void Residual by ultrasound Results AMB Urinalysis, Automated UA Leukoctes 0 Raven/uL Last Edit by Milton Lott on 09/18/22 14:56 UA Nitrite Negative Last Edit by Milton Lott on 09/18/22 14:56 UA Urobilinogen 0.2 mg/dL Last Edit by Milton Lott on 09/18/22 14:56 UA Protein 15 mg/dL Last Edit by Milton Lott on 09/18/22 14:56 UA pH 6.0 Last Edit by Milton Lott on 09/18/22 14:56 UA Blood 0 Gregory/uL Last Edit by Milton Lott on 09/18/22 14:56 UA Specific [place] 1.030 Last Edit by Milton Lott on 09/18/22 14:56 UA Ketone Negative Last Edit by Milton Lott on 09/18/22 14:56 UA Bilirubin 0 mg/dL Last Edit by Milton Lott on 09/18/22 14:56 UA Glucose 0 mg/dL Last Edit by Milton Lott on 09/18/22 14:56 Results Reviewed Results Reviewed: Laboratory Last Values Urine pH (Auto) 6.0 09/18/22 14:49 Specific [place] (Auto) 1.030 09/18/22 14:49 Urine Protein (Auto) 15 mg/dL 09/18/22 14:49 Glucose (UA)(Auto) 0 mg/dL 09/18/22 14:49 Urine Ketones (Auto) Negative 09/18/22 14:49 Urine Blood (Auto) 0 Gregory/uL 09/18/22 14:49 Urine Nitrite (Auto) Negative 09/18/22 14:49 Urine Bilirubin (Auto) 0 mg/dL 09/18/22 14:49 Urine Urobilinogen (Auto) 0.2 mg/dL 09/18/22 14:49 Leukocyte Esterase (Auto) 0 Raven/uL 09/18/22 14:49 Date of Service: 09/11/22 EXAMINATION: US RETROPERITONEAL COMPLETE (RENAL) FINDINGS: RIGHT KIDNEY: 10.4 x 4.8 x 5.4 cm (SAG x AP x TRV). The kidney is normal in size, contour, and echogenicity. Renal cortical thickness is normal. No calculi or focal parenchymal lesions. No hydronephrosis. LEFT KIDNEY: 10.8 x 5.1 x 4.5 cm (SAG x AP x TRV). The kidney is normal in size, contour, and echogenicity. Renal cortical thickness is normal. No hydronephrosis. 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 3 mm nonobstructing upper pole renal stone. BLADDER: Well distended and normal. Bilateral ureteral jets are demonstrated. Prevoid bladder volume is 245 mL. There is no postvoid residual. IMPRESSION: 1.? A 3 mm nonobstructing left upper pole renal stone. 2.? 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 Assessment & Plan Assessment & Plan (1) Recurrent UTI: Code(s): N39.0 - Urinary tract infection, site not specified (2) UTI (urinary tract infection): Code(s): N39.0 - Urinary tract infection, site not specified (3) Renal calculus, left: Code(s): N20.0 - Calculus of kidney (4) Angiolipoma of left kidney: Code(s): D17.71 - Benign lipomatous neoplasm of kidney Plan In office urinalysis results reviewed with the patient today; as noted above. PVR 0 mL. Discussed recent retroperitoneal ultrasound results with the patient today; as noted above. Discussed at length potential causes of nephrolithiasis as well as importance of drinking plenty of water daily. Patient otherwise denies any urinary issues or concerns at this time. Discussed UTI prevention with D mannose supplement, vitamin-C, increasing fluid intake, behavioral therapy with timed voiding, perineal hygiene and postcoital voiding, and management of constipation with stool softeners and increased fiber intake. Start vitamin B6 as discussed and prescribed. Discussed adding 1 oz of lemon juice to water daily. Renal ultrasound in 1 year. Follow-up in 1 year with imaging to be completed prior; or sooner with any issues, concerns, and or questions. Orders: Orders US renal BI 364 Days N20.0 - Calculus of kidney AMB Urinalysis Automated 09/18/22 Z13.9 - Encounter for screening, unspecified AMB Post Void Residual by ultrasound 09/18/22 R32 - Unspecified urinary incontinence Medications: New pyridoxine (vitamin B6) 100 mg PO DAILY 90 days 90 tabs 1RF N20.0 - Calculus of kidney Patient Instructions: The patient had an opportunity to ask questions regarding the treatment plan. All questions were answered. Physical exam, labs, and imaging were discussed and reviewed in detail. As well as risks, benefits, and discussion of treatment choices. No major barriers to understanding were identified. The patient expressed understanding and agreement with the above treatment plan. The patient was made aware they should contact our office by phone for worsening of their current condition, the appearance of new symptoms, or with any questions or concerns. Compliance is encouraged with any medications and follow up testing that is ordered. It is a privilege to be allowed the opportunity to participate in? your urological care.? Again, if you have any questions or concerns If you have any questions or concerns please do not hesitate to contact me. The office is [phone]. This note is constructed using voice recognition software. While every effort has been made to ensure accuracy director of cardiac rehabilitation errors may have been included. Yours sincerely, HUY Rios Coding Level of Care Code Est Pt Level 4 (58826) Diagnoses Recurrent UTI N39.0 UTI (urinary tract infection) N39.0 Renal calculus, left N20.0 Angiolipoma of left kidney D17.71 CPT Codes Post Residual Void - PVR CPT Code: 75061-Qtmf Void Residual by ultrasound ([id number])
== END 2022-09-18 15:17 | disposition home or self-care (01) ==
PROVIDERS: PCP Internal Medicine; Visit Provider Nurse Practitioner Family
DX: N39.0 Urinary tract infection, site not specified (principal); N20.0 Calculus of kidney; D17.71 Benign lipomatous neoplasm of kidney
CPT/HCPCS: 99214

== ENCOUNTER → 2022-09-18 14:39 | Outpatient (BNVA) | payer OTHER, SELFPAY | PROVIDERS: PCP Internal Medicine; Visit Provider Nurse Practitioner Family | DX: N20.0 Calculus of kidney (principal); R32 Unspecified urinary incontinence; N39.0 Urinary tract infection, site not specified; D17.71 Benign lipomatous neoplasm of kidney | CPT/HCPCS: 51798 ==

== ENCOUNTER 2023-05-29 15:57 | Outpatient (REF) | payer OTHER, SELFPAY ==
--- NOTE | ~2023-05-29 | MM_ITS ---
EXAMINATION: MM SCREENING DIGITAL BREAST TOMOSYNTHESIS, BILATERAL CLINICAL INFORMATION: Screening. Asymptomatic. COMPARISON: Mammography: This study is compared with prior exams dating back to 2020. TECHNIQUE: Digital breast tomosynthesis is performed in both the craniocaudal and mediolateral oblique views along with computer-aided detection (CAD). Synthesized 2D images are generated from the tomosynthesis. FINDINGS: The breasts are heterogeneously dense, which may obscure small masses (ACR BI-RADS breast composition Category c). There are no significant masses, abnormal calcifications, or other abnormalities. MM/MM tomosynthesis screening BI IMPRESSION: No mammographic evidence of malignancy. ASSESSMENT: BI-RADS BI-RADS 1 - Negative RECOMMENDATION: Routine annual mammography screening. 1 year F/U This examination should not preclude the clinical evaluation of a suspicious palpable abnormality. This patient's information was entered into a reminder system with a target due date for their next mammogram.
== END 2023-05-29 15:58 | disposition home or self-care (01) ==
LOC: HO.MAMMO 15:57
PROVIDERS: PCP Internal Medicine; Visit Provider Internal Medicine
DX: Z12.31 Encounter for screening mammogram for malignant neoplasm of breast (principal)
CPT/HCPCS: 77063; 77067

== ENCOUNTER → 2023-05-29 16:15 | Outpatient (BNV) | payer OTHER, SELFPAY | PROVIDERS: PCP Internal Medicine; Visit Provider Radiology Diagnostic Radiology | DX: Z12.31 Encounter for screening mammogram for malignant neoplasm of breast (principal) | CPT/HCPCS: 77063; 77067 ==

== ENCOUNTER 2023-06-23 12:46 | Outpatient (AMB) | payer OTHER, SELFPAY ==
[2023-06-23 12:50] VITALS: BP 100/60; BMI 26.9
--- NOTE | 2023-06-23 12:50 | A.OFFVIS_ITS ---
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 No complaints. Last Pap/HPV was negative in 04/30 Last mammogram was done in 05/29/2023, the report is still pending [facility] Surgical History History of section History of tonsillectomy Family History Father Hepatitis HIV (human immunodeficiency virus infection) Mother No problems noted. Maternal Grandmother Diabetes mellitus Skin cancer Maternal Grandfather Throat cancer Paternal Grandmother Diabetes mellitus Paternal Grandfather Diabetes mellitus Sister No problems noted. Sister No problems noted. Social History Alcohol intake: current Alcohol intake frequency: holidays/special occasions only Patient Tobacco Use Status: Never used Tobacco Female Reproductive History Menstrual Age of Menarche: 12 Duration of menses: 3-5 days Date of last menstrual period: 06/16/23 control method: none Total pregnancies: 1 Full term: 1 Date of last pap smear: 04/14/23 (negative) History of abnormal pap smear: No Review of Systems Const All systems reviewed & are unremarkable except as noted in HPI and below Card Reports as per HPI Resp Reports as per HPI GI Reports as per HPI and Reports no additional complaints Reports as per HPI Physical Exam Vital Signs: Last Vital Signs BP 100/60 06/23/23 12:50 BMI result Body Mass Index 26.9 Const General: cooperative, healthy appearing and comfortable Chest Chest palpation & inspection: normal inspection of the chest and normal palpation of entire chest wall Breast/axilla inspection: normal inspection of the breasts and normal inspection of the axillae Breast/axilla palpation: normal palpation of the breasts, normal palpation of the axillae and no axillary lymphadenopathy Resp Effort & Inspection: normal respiratory effort Auscultation: clear to auscultation bilaterally Percussion: percussion normal Cardio Palpation: normal PMI Rate: regular rate Rhythm: regular rhythm Heart sounds: no murmurs and no rubs Peripheral pulses: Peripheral pulses 2+ throughout GI Inspection: Yes normal to inspection Palpation (GI): Soft to palpation, nontender, no guarding, not rigid and No hepatosplenomegaly present Percussion: Yes normal to percussion Auscultation: normal bowel sounds Rectal Exam - Female: deferred General: Yes bladder normal to palpation External Female Exam: No lesion Speculum Exam - Vagina: normal appearance of the vagina, normal palpation, normal vaginal discharge and not erythematous Speculum Exam - Cervix: normal appearance of the cervix and normal palpation Bimanual exam- vagina & uterus: normal bimanual exam, normal palpation, uterine size normal, bladder normal to palpation, consistency normal and normal palpation Bimanual Exam- Adnexa, other: normal adnexae, no masses and no tenderness Assessment & Plan Assessment & Plan (1) Well woman exam: Code(s): Z01.419 - Encounter for gynecological examination (general) (routine) without abnormal findings Category: Medical Plan: Cotesting not indicated this year. Instructions given the patient to schedule next screening mammogram in 06/04 Counseled the patient about the recommended dietary allowance of 1000 mg of Calcium & 600 IU of vitamin D. The patient was instructed to perform monthly self-breast exams and to schedule an annual exam in a year; All questions answered and the patient verbalized understanding. Instructed the patient to schedule annual exam in a year Coding Level of Care Code Est Pt Prev Care 18-39y(24612) Diagnoses Well woman exam Z01.419
== END 2023-06-23 13:12 | disposition home or self-care (01) ==
PROVIDERS: Visit Provider Obstetrics & Gynecology
DX: Z01.419 Encounter for gynecological examination (general) (routine) without abnormal findings (principal)
CPT/HCPCS: 99395

== ENCOUNTER → 2023-06-23 12:46 | Outpatient (BNVA) | payer OTHER, SELFPAY | PROVIDERS: Visit Provider Obstetrics & Gynecology ==

== ENCOUNTER 2023-09-09 13:29 | Outpatient (REF) | payer OTHER, SELFPAY ==
--- NOTE | ~2023-09-09 | US_ITS ---
EXAMINATION: US RETROPERITONEAL LIMITED (RENAL ONLY) CLINICAL INFORMATION: Calculus of kidney. COMPARISON: Ultrasound retroperitoneal 09/11/2022. CT abdomen and pelvis 11/24/2021. TECHNIQUE: Real-time imaging of the kidneys. FINDINGS: RIGHT KIDNEY: 11.1 x 6.0 x 5.5 cm (SAG x AP x TRV). Multiple tiny renal echogenic foci may represent vascular calcifications, artifact or tiny nonobstructive renal calculi. No hydronephrosis. 3 mm midpole calculus. Renal cortical thickness is normal. Limited visualization. LEFT KIDNEY: 11.2 x 5.5 x 5.1 cm (SAG x AP x TRV). No hydronephrosis. Renal cortical thickness is normal. No obstructing renal calculi. 3 mm left renal midpole cortical echogenic focus characteristic of a calcification versus angiomyolipoma, stable. Limited visualization. US/US renal BI IMPRESSION: 1. Multiple tiny right renal echogenic foci may represent vascular calcifications, artifact or tiny nonobstructive renal calculi. No hydronephrosis. 2. A 3 mm left renal midpole cortical echogenic focus characteristic of a calcification versus angiomyolipoma, stable. 3. Right renal 3 mm midpole calculus.
== END 2023-09-09 13:30 | disposition home or self-care (01) ==
LOC: HO.US 13:29
PROVIDERS: PCP Internal Medicine; Visit Provider Nurse Practitioner Family
DX: N20.0 Calculus of kidney (principal)
CPT/HCPCS: 76775

== ENCOUNTER 2023-09-18 14:40 | Outpatient (AMB) | payer OTHER, SELFPAY ==
--- NOTE | 2023-09-18 14:46 | MHC.OFFVIS ---
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 York. She presents to the office today for a follow up of her recurrent urinary tract infections, nephrolithiasis, and angiolipoma. In discussion with the patient today she reports since her last office visit here approximately 1 year ago she has had no bothersome urinary issues or concerns. She reports she has been drinking plenty of water. Recent renal ultrasound results reviewed with the patient today. Right kidney with multiple tunnel renal echogenic foci that can represent vascular calcification, artifact, or tiny nonobstructing renal calculi. No hydronephrosis. 3 mm mid pole calculus. Left kidney with no hydronephrosis. 3 mm left renal mid pole echogenic focus characteristic of calcification versus angiolipoma. In office urinalysis results reviewed with the patient today PVR 0 mL. Patient reports to be doing and feeling well. She denies having had any recent urinary tract infections and or UTI like symptoms. She denies urinary urgency, urinary frequency, nocturia, hematuria, foul smelling urine, changes to urinary stream, flank pain, fever, and or chills. Discussed UTI prevention and nephrolthiasis. Discussed potential causes of nephrolithiasis as well as importance of continuing to drink plenty of water daily. She otherwise offers no issues or concerns at this time. [facility] Surgical History History of section History of tonsillectomy Family History Father Hepatitis HIV (human immunodeficiency virus infection) Mother No problems noted. Maternal Grandmother Diabetes mellitus Skin cancer Maternal Grandfather Throat cancer Paternal Grandmother Diabetes mellitus Paternal Grandfather Diabetes mellitus Sister No problems noted. Sister No problems noted. Social History Alcohol intake: current Alcohol intake frequency: holidays/special occasions only Patient Tobacco Use Status: Never used Tobacco Female Reproductive History Menstrual Age of Menarche: 12 Review of Systems Const All systems reviewed & are unremarkable except as noted in HPI and below Physical Exam Const General: cooperative, healthy appearing, comfortable, no acute distress, well developed, alert and awake Orientation/consciousness: patient oriented x3 Limitations: no limitations HEENT Head: Yes normal to inspection, Yes normocephalic and Yes atraumatic Ears: hearing grossly normal bilaterally Eyes General: appearance normal, both eyes and all related structures Neck Neck: Yes normal visual inspection and Yes trachea midline Chest Chest palpation & inspection: normal inspection of the chest Resp Effort & Inspection: normal respiratory effort and able to speak in complete sentences Cardio Rate: regular rate GI Inspection: Yes normal to inspection General: Yes no CVA tenderness Back/Spine/Pelvis Back: no CVA tenderness Skin General skin exam: no rashes or lesions noted Neuro General: patient oriented x3 Extrem General: Yes normal to inspection Psych Appearance: grossly normal and well kempt Mental Status: mental status grossly normal Speech and movement: Normal speech and movement present and Clear speech present Affect: normal affect Attitude: cooperative Thought process: Normal thought process present Thought content: Normal thought content present Insight: Good insight present (Psych) Judgement: Good judgement present (Psych) Office Procedures Post Void Residual Post Residual Void Post Void Residual (PVR): 0 [id number] Void Residual by ultrasound Results AMB Urinalysis, Automated UA Leukoctes 0 Raven/uL Last Edit by Milton Lott on 09/18/23 15:02 UA Nitrite Negative Last Edit by Milton Lott on 09/18/23 15:02 UA Urobilinogen 0.2 mg/dL Last Edit by Milton Lott on 09/18/23 15:02 UA Protein 15 mg/dL Last Edit by Milton Lott on 09/18/23 15:02 UA pH 6.0 Last Edit by Milton Lott on 09/18/23 15:02 UA Blood 0 Gregory/uL Last Edit by Milton Lott on 09/18/23 15:02 UA Specific [place] 1.025 Last Edit by Milton Lott on 09/18/23 15:02 UA Ketone Negative Last Edit by Milton Lott on 09/18/23 15:02 UA Bilirubin 0 mg/dL Last Edit by Milton Lott on 09/18/23 15:02 UA Glucose 0 mg/dL Last Edit by Milton Lott on 09/18/23 15:02 Results Reviewed Results Reviewed: Laboratory Last Values Urine pH (Auto) 6.0 09/18/23 15:00 Specific [place] (Auto) 1.025 09/18/23 15:00 Urine Protein (Auto) 15 mg/dL 09/18/23 15:00 Glucose (UA)(Auto) 0 mg/dL 09/18/23 15:00 Urine Ketones (Auto) Negative 09/18/23 15:00 Urine Blood (Auto) 0 Gregory/uL 09/18/23 15:00 Urine Nitrite (Auto) Negative 09/18/23 15:00 Urine Bilirubin (Auto) 0 mg/dL 09/18/23 15:00 Urine Urobilinogen (Auto) 0.2 mg/dL 09/18/23 15:00 Leukocyte Esterase (Auto) 0 Raven/uL 09/18/23 15:00 Date of Service: 09/09/23 EXAMINATION: US RETROPERITONEAL LIMITED (RENAL ONLY) FINDINGS: RIGHT KIDNEY: 11.1 x 6.0 x 5.5 cm (SAG x AP x TRV). Multiple tiny renal echogenic foci may represent vascular calcifications, artifact or tiny nonobstructive renal calculi. No hydronephrosis. 3 mm midpole calculus. Renal cortical thickness is normal. Limited visualization. LEFT KIDNEY: 11.2 x 5.5 x 5.1 cm (SAG x AP x TRV). No hydronephrosis. Renal cortical thickness is normal. No obstructing renal calculi. 3 mm left renal midpole cortical echogenic focus characteristic of a calcification versus angiomyolipoma, stable. Limited visualization. IMPRESSION: 1. Multiple tiny right renal echogenic foci may represent vascular calcifications, artifact or tiny nonobstructive renal calculi. No hydronephrosis. 2. A 3 mm left renal midpole cortical echogenic focus characteristic of a calcification versus angiomyolipoma, stable. 3. Right renal 3 mm midpole calculus. Assessment & Plan Assessment & Plan (1) Recurrent UTI: Code(s): N39.0 - Urinary tract infection, site not specified Category: Medical (2) UTI (urinary tract infection): Code(s): N39.0 - Urinary tract infection, site not specified Category: Medical (3) Renal calculus, left: Code(s): N20.0 - Calculus of kidney Category: Medical (4) Angiolipoma of left kidney: Code(s): D17.71 - Benign lipomatous neoplasm of kidney Category: Medical Plan In office urinalysis results reviewed with the patient today; as noted above. PVR 0 mL. Discussed renal ultrasound results with the patient today; as noted above. Discussed at length potential causes of nephrolithiasis as well as importance of drinking plenty of water daily. Patient otherwise denies any urinary issues or concerns at this time. Discussed UTI prevention with D mannose supplement, vitamin-C, increasing fluid intake, behavioral therapy with timed voiding, perineal hygiene and postcoital voiding, and management of constipation with stool softeners and increased fiber intake. Start vitamin B6 as discussed and prescribed. Discussed adding 1 oz of lemon juice to water daily. Renal ultrasound in 1 year. Follow-up in 1 year with imaging to be completed prior; or sooner with any issues, concerns, and or questions. Orders: Orders AMB Post Void Residual by ultrasound 09/18/23 N39.0 - Urinary tract infection, site not specified US renal BI 1 Year N20.0 - Calculus of kidney AMB Urinalysis Automated 09/18/23 Z13.9 - Encounter for screening, unspecified Medications: New pyridoxine (vitamin B6) 100 mg PO DAILY 90 days 90 tabs 3RF Patient Instructions: The patient had an opportunity to ask questions regarding the treatment plan. All questions were answered. Physical exam, labs, and imaging were discussed and reviewed in detail. As well as risks, benefits, and discussion of treatment choices. No major barriers to understanding were identified. The patient expressed understanding and agreement with the above treatment plan. The patient was made aware they should contact our office by phone for worsening of their current condition, the appearance of new symptoms, or with any questions or concerns. Compliance is encouraged with any medications and follow up testing that is ordered. It is a privilege to be allowed the opportunity to participate in? your urological care.? Again, if you have any questions or concerns If you have any questions or concerns please do not hesitate to contact me. The office is [phone]. This note is constructed using voice recognition software. While every effort has been made to ensure accuracy counter intelligence technician errors may have been included. Yours sincerely, HUY Rios Coding Level of Care Code Est Pt Level 3 (45537) Diagnoses Recurrent UTI N39.0 UTI (urinary tract infection) N39.0 Renal calculus, left N20.0 Angiolipoma of left kidney D17.71 CPT Codes Post Residual Void - PVR CPT Code: 19963-Xewh Void Residual by ultrasound ([id number])
== END 2023-09-18 15:06 | disposition home or self-care (01) ==
PROVIDERS: PCP Internal Medicine; Visit Provider Nurse Practitioner Family
DX: N39.0 Urinary tract infection, site not specified (principal); N20.0 Calculus of kidney; D17.71 Benign lipomatous neoplasm of kidney
CPT/HCPCS: 99213

== ENCOUNTER → 2023-09-18 14:40 | Outpatient (BNVA) | payer OTHER, SELFPAY | PROVIDERS: PCP Internal Medicine; Visit Provider Nurse Practitioner Family | DX: N39.0 Urinary tract infection, site not specified (principal); N20.0 Calculus of kidney; D17.71 Benign lipomatous neoplasm of kidney | CPT/HCPCS: 51798; 81003 ==

== ENCOUNTER 2023-12-22 14:03 | Outpatient (AMB) | payer OTHER, SELFPAY ==
--- NOTE | 2023-12-22 14:32 | MHC.OFFWIV ---
Intake Vital Signs 12/22/23 14:35 Height 5 ft 3 in Weight 151 lb BMI 26.7 BP 114/70 Blood Pressure Location Lt brachial Position Sitting Pulse 82 Pulse Source Pulse Oximeter Pulse Oximetry (%) 98 Oxygen Delivery Method Room Air Intake Visit Reasons: EP Hemorrhoids Intake Note: Patient here for hemorrhoid that started night and noticed this morning there was blood and has a dark spot to it. Patient Tobacco Use Status: Never used Tobacco Allergies No Known Allergies [No Known Allergies*] Allergy (Verified 12/22/23 14:36) Do you need a note to return to daycare/school/sports/work: Yes HPI HPI Comments History of Present Illness Details Patient is a 38-year-old female complaining of a black spot on her hemorrhoid. She states she noticed it after she saw some blood on the toilet paper and was having pain. She tells me she looked in the mirror and saw a black spot and she did not know if that was normal or not. She tells me she use preparation H to control her hemorrhoids but it does not seem to be working very well. [facility] Surgical History History of section History of tonsillectomy Family History Father Hepatitis HIV (human immunodeficiency virus infection) Mother No problems noted. Maternal Grandmother Diabetes mellitus Skin cancer Maternal Grandfather Throat cancer Paternal Grandmother Diabetes mellitus Paternal Grandfather Diabetes mellitus Sister No problems noted. Sister No problems noted. Social History Alcohol intake: current Alcohol intake frequency: holidays/special occasions only Patient Tobacco Use Status: Never used Tobacco Female Reproductive History Menstrual Age of Menarche: 12 Review of Systems Const All systems reviewed & are unremarkable except as noted in HPI and below Physical Exam Vital Signs: Last Vital Signs Pulse 82 12/22/23 14:35 BP 114/70 12/22/23 14:35 Pulse Ox 98 12/22/23 14:35 Oxygen Delivery Method Room Air 12/22/23 14:35 BMI result Body Mass Index 26.7 Const General: cooperative, healthy appearing, comfortable, no acute distress and well developed Orientation/consciousness: patient oriented x3 Limitations: no limitations HEENT Head: Yes normal to inspection Neck Neck: Yes normal visual inspection and Yes supple GI Rectal Exam - Female: External hemorrhoid(s) present (0.75cm external hemorrhoid with small black/purple dot, no bleeding noted) Neuro General: patient oriented x3 Assessment & Plan Assessment & Plan (1) Thrombosed external hemorrhoid: Code(s): K64.5 - Perianal venous thrombosis Plan: Gave patient Up-To-Date handout on hemorrhoids with a many different options for treatments. Recommended she add some of those treatments to help manage her symptoms as well as increasing her fiber intake and using Colace. Plan see above Coding Level of Care Code Est Pt Level 3 (49671) Diagnoses Thrombosed external hemorrhoid K64.5
[2023-12-22 14:35] VITALS: BP 114/70; PULSE 82; O2SAT 98; BMI 26.7
== END 2023-12-22 14:53 | disposition home or self-care (01) ==
PROVIDERS: PCP Internal Medicine; Visit Provider Physician Assistant
DX: K64.5 Perianal venous thrombosis (principal)

== ENCOUNTER 2024-08-17 12:56 | Outpatient (AMB) | payer OTHER, SELFPAY ==
--- NOTE | 2024-08-17 13:00 | MHC.OFFVIS ---
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 The patient is interested in discussing different options of control Last Pap/HPV was negative in 04/30 Last Mammogram was BI-RADS 1 in 06/03 Pelvic ultrasound done in 07/02 showed 1.4 cm myoma, the patient has no pelvic pain, pressure or abnormal uterine bleeding [facility] Surgical History History of section History of tonsillectomy Family History Father Hepatitis HIV (human immunodeficiency virus infection) Mother No problems noted. Maternal Grandmother Diabetes mellitus Skin cancer Maternal Grandfather Throat cancer Paternal Grandmother Diabetes mellitus Paternal Grandfather Diabetes mellitus Sister No problems noted. Sister No problems noted. Social History Alcohol intake: current Alcohol intake frequency: holidays/special occasions only Patient Tobacco Use Status: Never used Tobacco Female Reproductive History Menstrual Age of Menarche: 12 Duration of menses: 6-7 days Date of last menstrual period: 08/08/24 control method: none Total pregnancies: 1 Full term: 1 Date of last pap smear: 04/13/20 (negative pap smear, negative hpv ) Date of Mammogram: 05/29/23 (bi rad 1) Review of Systems Const All systems reviewed & are unremarkable except as noted in HPI and below Card Reports as per HPI Resp Reports as per HPI GI Reports as per HPI and Reports no additional complaints Reports as per HPI Physical Exam Vital Signs: Last Vital Signs BP 116/72 08/17/24 13:06 BMI result Body Mass Index 27.1 Const General: cooperative, healthy appearing and comfortable Chest Chest palpation & inspection: normal inspection of the chest and normal palpation of entire chest wall Breast/axilla inspection: normal inspection of the breasts and normal inspection of the axillae Breast/axilla palpation: normal palpation of the breasts, normal palpation of the axillae and no axillary lymphadenopathy Resp Effort & Inspection: normal respiratory effort Auscultation: clear to auscultation bilaterally Percussion: percussion normal Cardio Palpation: normal PMI Rate: regular rate Rhythm: regular rhythm Heart sounds: no murmurs and no rubs Peripheral pulses: Peripheral pulses 2+ throughout GI Inspection: Yes normal to inspection Palpation (GI): Soft to palpation, nontender, no guarding, not rigid and No hepatosplenomegaly present Percussion: Yes normal to percussion Auscultation: normal bowel sounds Rectal Exam - Female: deferred General: Yes bladder normal to palpation External Female Exam: No lesion Speculum Exam - Vagina: normal appearance of the vagina, normal palpation, normal vaginal discharge and not erythematous Speculum Exam - Cervix: normal appearance of the cervix and normal palpation Bimanual exam- vagina & uterus: normal bimanual exam, normal palpation, uterine size normal, bladder normal to palpation, consistency normal and normal palpation Bimanual Exam- Adnexa, other: normal adnexae, no masses and no tenderness Assessment & Plan Assessment & Plan (1) Well woman exam: Code(s): Z01.419 - Encounter for gynecological examination (general) (routine) without abnormal findings Category: Medical Plan: Cotesting done. Mammogram ordered. Counseled the patient about the recommended dietary allowance of 1000 mg of Calcium & 600 IU of vitamin D. The patient was instructed to perform monthly self-breast exams and to schedule an annual exam in a year; All questions answered and the patient verbalized understanding. Instructed the patient to schedule annual exam in a year (2) Uterine myoma: Code(s): D25.9 - Leiomyoma of uterus, unspecified Category: Medical Plan: Pelvic ultrasound ordered, instructions given the patient to schedule an ultrasound follow-up appointment. (3) Family planning: Code(s): Z30.09 - Encounter for other general counseling and advice on contraception Category: Social Hx Plan: Discussed with the patient the different options of control including control pills/Nuvaring, DMPA, different types of IUD ?s ( cu vs progesterone) , sterilization. All the pros, cons, risks and benefits of each were discussed with the patient. The patient decided to go ahead with Mirena IUD, so a more detailed discussion was carried on including mechanism of action, risks (infection, uterine perforation, failure with ectopic , septic AB, ovarian cyst and pelvic pain, increased breast cancer risk and others) benefits (efficient contraceptive method, others), GC/CG were taken and the patient was asked to call day one of next cycle for IUD insertion. Orders: Orders US pelvic and transvaginal Today D25.9 - Leiomyoma of uterus, unspecified MM tomosynthesis screening BI Today Z12.31 - Encounter for screening mammogram for malignant neoplasm of breast Coding Level of Care Code Est Pt Prev Care 18-39y(27594) Diagnoses Well woman exam Z01.419 Uterine myoma D25.9 Family planning Z30.09
[2024-08-17 13:06] VITALS: BP 116/72; BMI 27.1
--- OUTSIDE RECORDS SUMMARY | 2024-08-17 13:33 | XMS_ITS | Patient Health Record ---
Author Organization [facility] Address [address] [address] Support Name Relationship Address Phone DIANA KIMBALL Guarantor Unknown [phone] Reason For Referral No Information Plan Of Treatment No Information
== END 2024-08-17 13:23 | disposition home or self-care (01) ==
LOC: HO.HWS 12:56
PROVIDERS: PCP Internal Medicine; Visit Provider Obstetrics & Gynecology
DX: Z01.419 Encounter for gynecological examination (general) (routine) without abnormal findings (principal); D25.9 Leiomyoma of uterus, unspecified; Z30.09 Encounter for other general counseling and advice on contraception
CPT/HCPCS: 99395; 99459

== ENCOUNTER 2024-08-17 12:56 | Outpatient (REF) | payer OTHER, SELFPAY ==
[2024-08-17 16:28] LABS: CT PCR NOT DETECTED (Not Detect.); NG PCR NOT DETECTED (Not Detect.)
== END 2024-08-17 12:57 | disposition home or self-care (01) ==
LOC: HO.LNP 12:56
PROVIDERS: PCP Internal Medicine; Visit Provider Obstetrics & Gynecology
DX: Z01.411 Encounter for gynecological examination (general) (routine) with abnormal findings (principal); D25.9 Leiomyoma of uterus, unspecified; Z12.31 Encounter for screening mammogram for malignant neoplasm of breast
CPT/HCPCS: 87491; 87591; 87626; 88175

== ENCOUNTER 2024-09-07 08:55 | Outpatient (AMB) | payer OTHER, SELFPAY ==
[2024-09-07 09:09] VITALS: BMI 27.1
--- NOTE | 2024-09-07 09:09 | MHC.OFFVIS ---
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: No Information Interpreted: non-clinical & clinical Cook Frozen Dessert: Cook Frozen Dessert Present (Candie ELLISON) Accompanied by: Self / Same As Patient Allergies No Known Allergies (No Known Allergies*) Allergy (Verified 09/07/24 09:09) Is last menstrual period known: Yes Last menstrual period: 09/04/24 HPI Comments Details: Presenting for abnormal Pap smear showing LGSIL can not exclude HGSIL, HPV high-risk positive, HPV 16/18 negative [facility] Surgical History History of section History of tonsillectomy Family History Father Hepatitis HIV (human immunodeficiency virus infection) Mother No problems noted. Maternal Grandmother Diabetes mellitus Skin cancer Maternal Grandfather Throat cancer Paternal Grandmother Diabetes mellitus Paternal Grandfather Diabetes mellitus Sister No problems noted. Sister No problems noted. Social History Alcohol intake: current Alcohol intake frequency: holidays/special occasions only Patient Tobacco Use Status: Never used Tobacco Female Reproductive History Menstrual Age of Menarche: 12 Date of last menstrual period: 09/04/24 Review of Systems Const All systems reviewed & are unremarkable except as noted in HPI and below Reports as per HPI and Reports no additional complaints GI Reports no additional complaints Reports no additional complaints Physical Exam Vital Signs: BMI result Body Mass Index 27.1 Office Procedures Colposcopy Colposcopy: Pre-Procedure Counseling: Before beginning the procedure, I conducted comprehensive counseling with the patient. We thoroughly discussed the procedure itself, including its details, alternatives, and all associated risks. This included but not limited to the following complications such as bleeding, infection, and injury to the vagina, bladder, and vessels, as well as the potential need for transfusion with all its associated risks. Subsequently, the patient sign the consent. Pap smear result: LSIL can not exclude high grade RANGEL, HPV positive. Urine test in office = Negative Procedure: During the procedure, the following steps were performed: A speculum was inserted, and acetic acid was applied. Colposcopy was conducted, allowing visualization of the transformation zone. Acetowhite lesions were identified at the 6+9+11+1 o'clock position. Cervical biopsies were obtained from the 6+9+11+1 o'clock position, followed by an endocervical curettage (ECC). Vaginoscopy of the upper vagina revealed no evidence of aceto-white lesions. Hemostasis was achieved using Monsel solution, and the patient tolerated the procedure well. Post-Procedure Instructions: The patient was advised to promptly contact the office or the after hours answering service or go to the emergency room if experiencing a temperature exceeding 100.4?F, abdominal pain, nausea/vomiting, or bleeding. Additionally, the patient was instructed to abstain from vaginal intercourse and bathtub use. The patient confirmed understanding of these instructions. Discharge Instructions: The patient was instructed to schedule a follow-up appointment in 2 weeks for further evaluation and management. Please note that this note was generated using a voice recognition program, and errors may have occurred during chemical research worker. [id number] of cervix including upper vagina with biopsy and ECC Procedure code (CPT) selection complete Results AMB Test Urine AMB Test Urine Negative Last Edit by Candie Beasley CMA on 09/07/24 09:11 Results Reviewed Results Reviewed: Laboratory Last Values [facility] Negative 09/07/24 09:10 Assessment & Plan Assessment & Plan (1) LGSIL on Pap smear of cervix: Comment: Can not exclude HGSIL HPV positive, HPV 16/18 negative Code(s): R87.612 - Low grade squamous intraepithelial lesion on cytologic smear of cervix (LGSIL) Category: Medical Plan: Discussed with the patient the result of her abnormal pap, its significance, risk of progression, persistence, and regression. the false positive/negative rate of a Pap smear as a screening test in detecting cervical cancer and the indication for a diagnostic test -colposcopy, biopsy, endocervical curettage. The patient verbalized understanding and agreed with the plan, all questions answered. Colposcopy, biopsy /ECC done, see procedure note Orders: Orders AMB HCG Urine Test Today Z32.02 - Encounter for test, result negative AMB Colposcopy Today R87.612 - Low grade squamous intraepithelial lesion on cytologic smear of cervix (LGSIL) Coding Level of Care Code Procedure Only Diagnoses LGSIL on Pap smear of cervix R87.612 CPT Codes Colposcopy - CPT: 87372-Jciavfuuz of cervix including upper vagina with biopsy and ECC ([id number])
--- OUTSIDE RECORDS SUMMARY | 2024-09-07 09:13 | XMS_ITS | Patient Health Record ---
Author Organization [facility] Address [address] [address] Support Name Relationship Address Phone DIANA KIMBALL Guarantor Unknown [phone] Reason For Referral No Information Plan Of Treatment No Information
== END 2024-09-07 09:35 | disposition home or self-care (01) ==
LOC: HO.HWS 08:56
PROVIDERS: PCP Internal Medicine; Visit Provider Obstetrics & Gynecology
DX: R87.612 Low grade squamous intraepithelial lesion on cytologic smear of cervix (LGSIL) (principal); Z32.02 Encounter for pregnancy test, result negative
CPT/HCPCS: 57454

== ENCOUNTER 2024-09-07 08:55 | Outpatient (REF) | payer OTHER, SELFPAY | END 2024-09-07 08:56 | disposition home or self-care (01) | LOC: HO.LNP 08:55 | PROVIDERS: PCP Internal Medicine; Visit Provider Obstetrics & Gynecology | DX: R87.612 Low grade squamous intraepithelial lesion on cytologic smear of cervix (LGSIL) (principal); Z32.02 Encounter for pregnancy test, result negative | CPT/HCPCS: 57454; 81025; 88305; 88341; 88342 ==

== ENCOUNTER 2024-09-08 14:25 | Outpatient (REF) | payer OTHER, SELFPAY ==
--- NOTE | ~2024-09-08 | US_ITS ---
CLINICAL HISTORY: N20.0 - Calculus of kidney US Renal Comparison: US/SR - US RETROPERITONEUM - 09/11/22 14:38 EDT Findings: Right kidney normal size and echotexture, 11 cm length. Left kidney normal size and echotexture, 11 cm length. 4 x 4 x 3 mm calcification of the midpole cortex. No hydronephrosis of either kidney. Normal color Doppler IMPRESSION: Left kidney stone. No hydronephrosis. This document has been electronically signed by: Oj Penn MD on 09/08/2024 15:53:46
--- OUTSIDE RECORDS SUMMARY | 2024-09-08 15:07 | XMS_ITS | Patient Health Record ---
Author Organization [facility] Address [address] [address] Support Name Relationship Address Phone DIANA KIMBALL Guarantor Unknown [phone] Reason For Referral No Information Plan Of Treatment No Information
== END 2024-09-08 14:26 | disposition home or self-care (01) ==
LOC: HO.US 14:25
PROVIDERS: PCP Internal Medicine; Visit Provider Nurse Practitioner Family
DX: N20.0 Calculus of kidney (principal)
CPT/HCPCS: 76775

== ENCOUNTER → 2024-09-08 14:26 | Outpatient (BNV) | payer OTHER, SELFPAY | PROVIDERS: PCP Internal Medicine; Visit Provider Nuclear Medicine | DX: N20.0 Calculus of kidney (principal) | CPT/HCPCS: 76775 ==

== ENCOUNTER 2024-09-28 09:53 | Outpatient (AMB) | payer OTHER, SELFPAY ==
--- NOTE | 2024-09-28 09:57 | MHC.OFFVIS ---
Vital Signs 09/28/24 09:58 Height 5 ft 3 in Intake Visit Reasons: repeat ECC Trauma Coordinator Required: No Information Interpreted: non-clinical & clinical Labor Economist: Labor Economist Present Accompanied by: Self / Same As Patient Allergies No Known Allergies (No Known Allergies*) Allergy (Verified 09/28/24 10:06) HPI Comments Details: Presenting post colpo for follow-up. The patient is doing well with no complaints. The pathology showed the following: A. Endocervix, curettage: Endocervical glandular mucosa with marked inflammation and few squamous metaplastic cells; negative for dysplasia. B. Cervix, 1:00, biopsy: No tissue present for evaluation. C. Cervix, 6:00, biopsy: Squamous and endocervical glandular mucosa with inflammation and reactive changes; negative for dysplasia. D. Cervix, 9:00, biopsy: Squamous and endocervical glandular mucosa with inflammation and reactive changes; negative for dysplasia. E. Cervix, 11:00, biopsy: Squamous and endocervical glandular mucosa with marked inflammation and reactive changes; negative for dysplasia. Comment: The patient's previous Pap test ([id number]) will be reviewed; addendum to follow. [facility] Surgical History History of section History of tonsillectomy Family History Father Hepatitis HIV (human immunodeficiency virus infection) Mother No problems noted. Maternal Grandmother Diabetes mellitus Skin cancer Maternal Grandfather Throat cancer Paternal Grandmother Diabetes mellitus Paternal Grandfather Diabetes mellitus Sister No problems noted. Sister No problems noted. Social History Alcohol intake: current Alcohol intake frequency: holidays/special occasions only Patient Tobacco Use Status: Never used Tobacco Female Reproductive History Menstrual Age of Menarche: 12 Review of Systems Const All systems reviewed & are unremarkable except as noted in HPI and below Reports as per HPI and Reports no additional complaints GI Reports no additional complaints Reports no additional complaints Office Procedures NURSE CHEMICAL DEPENDENCY Biopsy Colposcopy: Pre-Procedure Counseling: Before beginning the procedure, I conducted comprehensive counseling with the patient. We thoroughly discussed the procedure itself, including its details, alternatives, and all associated risks. This included but not limited to the following complications such as bleeding, infection, and injury to the vagina, bladder, and vessels, as well as the potential need for transfusion with all its associated risks. Subsequently, the patient sign the consent. Pap smear result: LSIL can not rule out high-grade. Procedure: During the procedure, the following steps were performed: A speculum was inserted, and acetic acid was applied. Colposcopy was conducted, allowing visualization of the transformation zone. Acetowhite lesions were identified at the 1 o'clock position. Cervical biopsies were obtained from the 1 o'clock position, Hemostasis was achieved using Monsel solution, and the patient tolerated the procedure well. Post-Procedure Instructions: The patient was advised to promptly contact the office or the after hours answering service or go to the emergency room if experiencing a temperature exceeding 100.4?F, abdominal pain, nausea/vomiting, or bleeding. Additionally, the patient was instructed to abstain from vaginal intercourse and bathtub use. The patient confirmed understanding of these instructions. Discharge Instructions: The patient was instructed to schedule a follow-up appointment in 2 weeks for further evaluation and management. Please note that this note was generated using a voice recognition program, and errors may have occurred during chief credit officer. 23916-Xothfm of Cervix Procedure code (CPT) selection complete Assessment & Plan Assessment & Plan (1) LGSIL on Pap smear of cervix: Comment: Can not exclude HGSIL HPV positive, HPV 16/18 negative Code(s): R87.612 - Low grade squamous intraepithelial lesion on cytologic smear of cervix (LGSIL) Category: Medical Plan: Discussed with the patient the results the pathology, all biopsy is negative accepted cervical biopsy at 01:00 no tissue present, recommended repeat 01:00 cervical biopsy. Cervical biopsy done, see procedure note. Instructions given the patient to schedule a follow-up appointment within a week Orders: Orders AMB NURSE CHEMICAL DEPENDENCY Biopsy Today R87.612 - Low grade squamous intraepithelial lesion on cytologic smear of cervix (LGSIL) Coding Level of Care Code Procedure Only Diagnoses LGSIL on Pap smear of cervix R87.612 CPT Codes NURSE CHEMICAL DEPENDENCY Biopsy - CPT: 22708-Avspzp of Cervix ([id number])
--- OUTSIDE RECORDS SUMMARY | 2024-09-28 11:02 | XMS_ITS | Patient Health Record ---
Author Organization [facility] Address [address] [address] Support Name Relationship Address Phone DIANA KIMBALL Guarantor Unknown [phone] Reason For Referral No Information Plan Of Treatment No Information
== END 2024-09-28 10:27 | disposition home or self-care (01) ==
PROVIDERS: PCP Internal Medicine; Visit Provider Obstetrics & Gynecology
DX: R87.612 Low grade squamous intraepithelial lesion on cytologic smear of cervix (LGSIL) (principal); Z32.02 Encounter for pregnancy test, result negative
CPT/HCPCS: 57500

== ENCOUNTER 2024-09-28 09:53 | Outpatient (REF) | payer OTHER, SELFPAY | END 2024-09-28 09:54 | disposition home or self-care (01) | LOC: HO.LNP 09:53 | PROVIDERS: PCP Internal Medicine; Visit Provider Obstetrics & Gynecology | DX: R87.612 Low grade squamous intraepithelial lesion on cytologic smear of cervix (LGSIL) (principal); Z32.02 Encounter for pregnancy test, result negative | CPT/HCPCS: 57500; 81025; 88305; 88341; 88342 ==

== ENCOUNTER 2024-09-29 14:46 | Outpatient (AMB) | payer OTHER, SELFPAY ==
--- NOTE | 2024-09-29 14:51 | A.OFFVIS_ITS ---
Intake Visit Reasons: 1y/US Intake Note: Patient is present for 1Y/US Urology Medication:NONE Antibiotic Allergy:NONE Blood Thinner:NONE Agricultural Chemicals Inspector Required: No Accompanied by: Self / Same As Patient Allergies No Known Allergies (No Known Allergies*) Allergy (Verified 09/29/24 16:09) Medication List - Last Reconciled 09/29/24 by HUY Rios No Known Home Meds HPI Comments Details: Alejandra is a very pleasant 39-year-old female patient of Dr. York. She presents to the office today for a follow up of her recurrent urinary tract infections, nephrolithiasis, and angiolipoma. In discussion with the patient today she reports since her last office visit here approximately 1 year ago she has had no bothersome urinary issues or concerns. She reports she has been drinking plenty of water. Recent renal ultrasound results reviewed with the patient today. 09/03 bilateral kidneys are normal in size and echotexture. 4 mm calcification in the left mid pole cortex. No hydronephrosis noted bilaterally. We did discuss decrease in stone burden when compared to previous imaging from last year. In office urinalysis results reviewed with the patient today. She denies having had any recent urinary tract infections and or UTI like symptoms. She denies urinary urgency, urinary frequency, nocturia, hematuria, foul smelling urine, changes to urinary stream, flank pain, fever, and or chills. Discussed UTI prevention and nephrolthiasis. Discussed potential causes of nephrolithiasis as well as importance of continuing to drink plenty of water daily. She otherwise offers no issues or concerns at this time. [facility] Surgical History History of section History of tonsillectomy Family History Father Hepatitis HIV (human immunodeficiency virus infection) Mother No problems noted. Maternal Grandmother Diabetes mellitus Skin cancer Maternal Grandfather Throat cancer Paternal Grandmother Diabetes mellitus Paternal Grandfather Diabetes mellitus Sister No problems noted. Sister No problems noted. Social History Alcohol intake: current Alcohol intake frequency: holidays/special occasions only Patient Tobacco Use Status: Never used Tobacco Female Reproductive History Menstrual Age of Menarche: 12 Review of Systems Const All systems reviewed & are unremarkable except as noted in HPI and below Physical Exam Const General: cooperative, healthy appearing, comfortable, no acute distress, well developed, alert and awake Orientation/consciousness: patient oriented x3 Limitations: no limitations HEENT Head: Yes normal to inspection, Yes normocephalic and Yes atraumatic Ears: hearing grossly normal bilaterally Eyes General: appearance normal, both eyes and all related structures Neck Neck: Yes normal visual inspection and Yes trachea midline Chest Chest palpation & inspection: normal inspection of the chest Resp Effort & Inspection: normal respiratory effort and able to speak in complete sentences Cardio Rate: regular rate GI Inspection: Yes normal to inspection General: Yes no CVA tenderness Back/Spine/Pelvis Back: no CVA tenderness Skin General skin exam: no rashes or lesions noted Neuro General: patient oriented x3 Extrem General: Yes normal to inspection Psych Appearance: grossly normal and well kempt Mental Status: mental status grossly normal Speech and movement: Normal speech and movement present and Clear speech present Affect: normal affect Attitude: cooperative Thought process: Normal thought process present Thought content: Normal thought content present Insight: Good insight present (Psych) Judgement: Good judgement present (Psych) Results AMB Urinalysis, Automated UA Leukoctes 0 Raven/uL Last Edit by MARIELLA Goodwin on 09/29/24 15:22 UA Nitrite Negative Last Edit by MARIELLA Goodwin on 09/29/24 15:22 UA Urobilinogen 0.2 mg/dL Last Edit by MARIELLA Goodwin on 09/29/24 15:2 2 UA Protein 0 mg/dL Last Edit by MARIELLA Goodwin on 09/29/24 15:22 UA pH 6.0 Last Edit by MARIELLA Goodwin on 09/29/24 15:22 UA Blood 10 Gregory/uL Last Edit by MARIELLA Goodwin on 09/29/24 15:22 UA Specific [place] 1.025 Last Edit by MARIELLA Goodwin on 09/29/24 15: 22 UA Ketone Negative Last Edit by MARIELLA Goodwin on 09/29/24 15:22 UA Bilirubin 0 mg/dL Last Edit by MARIELLA Goodwin on 09/29/24 15:22 UA Glucose 0 mg/dL Last Edit by MARIELLA Goodwin on 09/29/24 15:22 Results Reviewed Results Reviewed: Laboratory Last Values Urine pH (Auto) 6.0 09/29/24 15:21 Specific [place] (Auto) 1.025 09/29/24 15:21 Urine Protein (Auto) 0 mg/dL 09/29/24 15:21 Glucose (UA)(Auto) 0 mg/dL 09/29/24 15:21 Urine Ketones (Auto) Negative 09/29/24 15:21 Urine Blood (Auto) 10 Gregory/uL 09/29/24 15:21 Urine Nitrite (Auto) Negative 09/29/24 15:21 Urine Bilirubin (Auto) 0 mg/dL 09/29/24 15:21 Urine Urobilinogen (Auto) 0.2 mg/dL 09/29/24 15:21 Leukocyte Esterase (Auto) 0 Raven/uL 09/29/24 15:21 Date of Service: 09/08/24 Procedure(s): US renal BI US Renal Comparison: US/SR - US RETROPERITONEUM - 09/11/22 14:38 EDT Findings: Right kidney normal size and echotexture, 11 cm length. Left kidney normal size and echotexture, 11 cm length. 4 x 4 x 3 mm calcification of the midpole cortex. No hydronephrosis of either kidney. Normal color Doppler IMPRESSION: Left kidney stone. No hydronephrosis. Assessment & Plan Assessment & Plan (1) Angiolipoma of left kidney: Code(s): D17.71 - Benign lipomatous neoplasm of kidney Category: Medical (2) Nephrolithiasis: Code(s): N20.0 - Calculus of kidney Category: Medical (3) Recurrent UTI: Code(s): N39.0 - Urinary tract infection, site not specified Category: Medical Plan In office urinalysis results reviewed with the patient today; as noted above. Recent renal imaging results reviewed with the patient today; as noted above. She currently denies any bothersome urinary issues or concerns. She reports be happy with current voiding parameters. Will continue with surveillance monitoring. We discussed the importance of adequate hydration relation to nephrolithiasis as well as overall health and well-being. Continue adding 1 oz of lemon juice to water daily. Will obtain renal ultrasound in 1 year. Discussed UTI prevention with D mannose supplement, vitamin-C, increasing fluid intake, behavioral therapy with timed voiding, perineal hygiene and postcoital voiding, and management of constipation with stool softeners and increased fiber intake. Follow-up in 1 year with imaging to be completed prior; or sooner with any issues, concerns, and or questions. Orders: Orders AMB Urinalysis Automated Today Z13.9 - Encounter for screening, unspecified US renal BI 1 Year N20.0 - Calculus of kidney Patient Instructions: The patient had an opportunity to ask questions regarding the treatment plan. All questions were answered. Physical exam, labs, and imaging were discussed and reviewed in detail. As well as risks, benefits, and discussion of treatment choices. No major barriers to understanding were identified. The patient expressed understanding and agreement with the above treatment plan. The patient was made aware they should contact our office by phone for worsening of their current condition, the appearance of new symptoms, or with any questions or concerns. Compliance is encouraged with any medications and follow up testing that is ordered. It is a privilege to be allowed the opportunity to participate in? your urological care.? Again, if you have any questions or concerns If you have any questions or concerns please do not hesitate to contact me. The office is [phone]. This note is constructed using voice recognition software. While every effort has been made to ensure accuracy coloring machine operator errors may have been included. Yours sincerely, HUY Rios Coding Level of Care Code Est Pt Level 3 (11153) Complex EM visit Add On G2211 Diagnoses Angiolipoma of left kidney D17.71 Nephrolithiasis N20.0 Recurrent UTI N39.0
--- OUTSIDE RECORDS SUMMARY | 2024-09-29 15:42 | XMS_ITS | Patient Health Record ---
Author Organization [facility] Address [address] [address] Support Name Relationship Address Phone DIANA KIMBALL Guarantor Unknown [phone] Reason For Referral No Information Plan Of Treatment No Information
== END 2024-09-29 15:22 | disposition home or self-care (01) ==
LOC: HO.HUSH 14:46
PROVIDERS: PCP Internal Medicine; Visit Provider Nurse Practitioner Family
DX: D17.71 Benign lipomatous neoplasm of kidney (principal); N20.0 Calculus of kidney; N39.0 Urinary tract infection, site not specified; Z13.9 Encounter for screening, unspecified
CPT/HCPCS: 99213; G2211

== ENCOUNTER → 2024-09-29 14:46 | Outpatient (BNVA) | payer OTHER, SELFPAY | PROVIDERS: PCP Internal Medicine; Visit Provider Nurse Practitioner Family | DX: N20.0 Calculus of kidney (principal); N39.0 Urinary tract infection, site not specified; D17.71 Benign lipomatous neoplasm of kidney | CPT/HCPCS: 81003 ==

== ENCOUNTER 2024-10-26 11:18 | Outpatient (AMB) | payer OTHER, SELFPAY ==
--- NOTE | 2024-10-26 11:19 | A.OFFVIS_ITS ---
Intake Visit Reasons: colpo results Ticket Collector Name: TERRA Negrete Allergies No Known Allergies (No Known Allergies*) Allergy (Verified 09/29/24 16:09) HPI Comments Details: Presenting post colpo for follow-up. The patient is doing well with no complaints. The pathology showed the following: Cervix, 1:00, biopsy: Low grade squamous intraepithelial lesion (TONI I), focal. COMMENT: The dysplastic cells noted on the patient's previous Pap ([id number]; LGSIL; HPV+) correlate with the current biopsy findings. [facility] Medical History (Updated 10/26/24 @ 11:27 by Ganga Nick MD) Dysplasia of cervix, low grade (TONI 1) Surgical History History of section History of tonsillectomy Family History Father Hepatitis HIV (human immunodeficiency virus infection) Mother No problems noted. Maternal Grandmother Diabetes mellitus Skin cancer Maternal Grandfather Throat cancer Paternal Grandmother Diabetes mellitus Paternal Grandfather Diabetes mellitus Sister No problems noted. Sister No problems noted. Social History Alcohol intake: current Alcohol intake frequency: holidays/special occasions only Patient Tobacco Use Status: Never used Tobacco Female Reproductive History Menstrual Age of Menarche: 12 Telehealth Telehealth Telehealth Platform: [employer] Location of provider rendering services: practice address Location of patient: address on file Patient Identification confirmed using: Name, : Yes Telehealth method: video Patient verbally consented to treatment: Yes Patient verbally consented to billing insurance company: Yes Patient informed of any privacy concerns related to visit: Yes Minutes spent on Phone/Video with Pt.: 3 Assessment & Plan Assessment & Plan (1) Dysplasia of cervix, low grade (TONI 1): Comment: 2020 co testing negative 09/03 LGSIL can not exclude high-grade RANGEL, colpo biopsy ECC TONI 1 Code(s): N87.0 - Mild cervical dysplasia Category: Medical Plan: Discussed with the patient the results the pathology showing TONI 1 with Pap smear showing LSIL can not exclude high-grade, options of treatment discussed with the patient including co testing at 12 and 24 months versus diagnostic excision procedure. All pros and cons risks and benefits of each were discussed with the patient, the patient decided to proceed with LEEP possible cone with post cone with ECC. Will schedule preop visit I spent a total of 20 minutes reviewing the chart, talking to the patient via video and documenting in the medical record. Coding Level of Care Code Tele Est Pt Level 3 (45635) Diagnoses Dysplasia of cervix, low grade (TONI 1) N87.0
--- OUTSIDE RECORDS SUMMARY | 2024-10-26 15:25 | XMS_ITS | Patient Health Record ---
Author Organization [facility] Address [address] [address] Support Name Relationship Address Phone DIANA KIMBALL Guarantor Unknown [phone] Reason For Referral No Information Plan Of Treatment No Information
== END 2024-10-26 12:01 | disposition home or self-care (01) ==
LOC: HO.HWS 11:18
PROVIDERS: PCP Internal Medicine; Visit Provider Obstetrics & Gynecology
DX: N87.0 Mild cervical dysplasia (principal)
CPT/HCPCS: 99213

== ENCOUNTER 2024-10-27 08:17 | Outpatient (AMB) | payer OTHER, SELFPAY ==
[2024-10-27 08:20] VITALS: BMI 26.6
--- NOTE | 2024-10-27 08:20 | A.OFFVIS_ITS ---
Vital Signs 10/27/24 08:20 Height 5 ft 3 in Weight 150 lb BMI 26.6 Intake Visit Reasons: pre op Intake Note: Pre op for Leep procedure Community Service Representative Required: No Information Interpreted: non-clinical & clinical Supervisor Coal Handling: Supervisor Coal Handling Present Accompanied by: Son Allergies No Known Allergies (No Known Allergies*) Allergy (Verified 10/27/24 08:24) Is last menstrual period known: Yes Last menstrual period: 12/09/19 Post menopausal: No Patient : No Do you need a note to return to daycare/school/sports/work: Yes (for surgery on friday) HPI Comments Details: Presenting for follow-up. Pap smear= L RANGEL can not exclude high-grade RANGEL, HPV positive, HPV 16/18 negative Colpo biopsy ECC TONI 1 [facility] Medical History Dysplasia of cervix, low grade (TONI 1) Surgical History History of section History of tonsillectomy Family History Father Hepatitis HIV (human immunodeficiency virus infection) Mother No problems noted. Maternal Grandmother Diabetes mellitus Skin cancer Maternal Grandfather Throat cancer Paternal Grandmother Diabetes mellitus Paternal Grandfather Diabetes mellitus Sister No problems noted. Sister No problems noted. Social History Alcohol intake: current Alcohol intake frequency: holidays/special occasions only Patient Tobacco Use Status: Never used Tobacco Female Reproductive History Menstrual Age of Menarche: 12 Date of last menstrual period: 12/09/19 Total pregnancies: 2 Full term: 2 Review of Systems Card Reports as per HPI and Reports no additional complaints Resp Reports as per HPI and Reports no additional complaints GI Reports as per HPI and Reports no additional complaints Reports as per HPI Physical Exam Vital Signs: BMI result Body Mass Index 26.6 Const General: cooperative, healthy appearing and comfortable Resp Effort & Inspection: normal respiratory effort Auscultation: clear to auscultation bilaterally Percussion: percussion normal Cardio Palpation: normal PMI Rate: regular rate Rhythm: regular rhythm Heart sounds: no murmurs and no rubs Peripheral pulses: Peripheral pulses 2+ throughout GI Inspection: Yes normal to inspection Palpation (GI): Soft to palpation, nontender, no guarding, not rigid and No hepatosplenomegaly present Percussion: Yes normal to percussion Auscultation: normal bowel sounds Rectal Exam - Female: deferred Assessment & Plan Assessment & Plan (1) Dysplasia of cervix, low grade (TONI 1): Comment: 2020 co testing negative 09/03 LGSIL can not exclude high-grade RANGEL, colpo biopsy ECC TONI 1 Code(s): N87.0 - Mild cervical dysplasia Category: Medical Plan: Discussed with the patient the results the pathology showing TONI 1 and the cytology showing LSIL can not exclude high-grade RANGEL, given the discrepancy BP in the pathology and the cytology, recommended either a co testing in 12 and 24 months versus diagnostic excisional procedure, LEEP possible LEEP cone with post cone ECC. All pros and cons, risks and benefits of each were discussed with the patient, the patient decided to proceed with LEEP possible LEEP cone with post cone ECC. Will proceed with LEEP cone was post cone ECC. Discussed with the patient the procedure, its benefits and risks including bleeding, infection, possible need for blood transfusion with all its risk ( HIV, syphilis, Hepatitis, anaphylaxis shock, others..), injury to bladder, rectum, possible re-excision for positive margins, potential need for hysterectomy, possible future negative impact on fertility including ( cervical stenosis, incompetence , increase risk for c section 2ndary to cervical scarring and failure of dilatation), possible positive margin necessitating re-excision. Also discussed the patient options of anesthesia either paracervical block versus IV sedation/MAC, prefers to proceed with IV sedation/MAC. All questions answered, the patient verbalized understanding and signed the consent. Coding Level of Care Code Est Pt Level 3 (64307) Diagnoses Dysplasia of cervix, low grade (TONI 1) N87.0
== END 2024-10-27 09:14 | disposition home or self-care (01) ==
LOC: HO.HWS 08:18
PROVIDERS: PCP Internal Medicine; Visit Provider Obstetrics & Gynecology
DX: N87.0 Mild cervical dysplasia (principal)
CPT/HCPCS: 99213

== ENCOUNTER 2024-10-27 08:17 | Outpatient (REF) | payer OTHER, SELFPAY ==
[2024-10-27 13:07] LABS: MANUAL DIFF FLAG NO
[2024-10-27 13:15] LABS: Hematocrit 40.1 % (37.0-47.0); Hemoglobin 13.6 g/dl (12.0-16.0); Imm Gran Abs Auto 0.02 X10*3/uL (0.00-0.03); Imm Gran Pct Auto 0.2 % (0.0-0.4); Lymphocytes Absolute Auto 2.5 X10*3/uL (1.2-4.9); Mean Corpuscular HGB Conc 33.9 g/dl (31.0-35.0); Mean Corpuscular Hemoglobin 30.5 pg (27.0-33.0); Mean Corpuscular Volume 89.9 fL (80.0-98.0); NRBC Abs Auto 0.000 X10*3/uL (0.0-0.012); NRBC Pct Auto 0.0 /100WBC (0.0-0.2); Platelet Count 286 X10*3/uL (160-400); Red Blood Count 4.46 X10*6/uL (4.20-5.50); White Blood Count 8.2 X10*3/uL (4.8-10.8)
[2024-10-27 14:05] LABS: Alanine Aminotransferase 21 U/L (0-31); Albumin Level 4.5 g/dL (3.5-5.0); Alkaline Phosphatase 82 U/L (39-117); Anion Gap 10 (12-20); Aspartate Amino Transferase 24 U/L (5-31); Blood Urea Nitrogen 14 mg/dL (9-16); Calcium 9.1 mg/dL (8.4-10.2); Carbon Dioxide 28 mmol/L (22-29); Chloride 108 mmol/L (96-108); Cholesterol 195 mg/dL (<200); Estimated Glomerular Filt Rate > 60; HDL Cholesterol 36 mg/dL (>40); Potassium 4.0 mmol/L (3.3-5.1); Sodium 142 mmol/L (135-145); Total Protein 7.2 g/dL (6.5-8.0); Triglycerides 103 mg/dL (<150)
[2024-11-02 07:43] LABS: Vitamin D 25-OH, D2 <4 ng/mL; Vitamin D 25-OH, D3 25 ng/mL; Vitamin D 25-OH, Total 25 ng/mL (30-100)
== END 2024-10-27 08:18 | disposition home or self-care (01) ==
LOC: HO.HMGCLDS 08:17
PROVIDERS: PCP Internal Medicine; Referring Provider Internal Medicine; Visit Provider Obstetrics & Gynecology
DX: Z00.01 Encounter for general adult medical examination with abnormal findings (principal); Z23 Encounter for immunization; K60.2 Anal fissure, unspecified; K62.5 Hemorrhage of anus and rectum; K64.8 Other hemorrhoids; N87.0 Mild cervical dysplasia
CPT/HCPCS: 36415; 80053; 80061; 82306; 85025; 90471; 90715; 96127

== ENCOUNTER 2024-10-27 11:20 | Outpatient (AMB) | payer OTHER, SELFPAY ==
[2024-10-27 11:23] VITALS: BP 118/76; PULSE 70; O2SAT 97; BMI 27.1
--- NOTE | 2024-10-27 11:23 | A.OFFPC_ITS ---
Vital Signs 10/27/24 11:23 Height 5 ft 3 in Weight 153 lb BMI 27.1 BP 118/76 Blood Pressure Location Lt brachial Position Sitting Pulse 70 Pulse Source Pulse Oximeter Pulse Oximetry (%) 97 Intake Visit Reasons: Annual PE Allergies No Known Allergies (No Known Allergies*) Allergy (Verified 10/27/24 11:24) Medication List - Last Reconciled 10/27/24 by Nedra York MD No Known Home Meds Tobacco use date assessed: 10/27/24 Dental Screening Dental Screen Date: 10/27/24 Did you have a dental visit in the last 12 months?: Yes Did you have a dental problem in the last 6 months where you did not have access to dental care?: No Was dental information given to patient?: Patient has dentist HPI Annual PE HPI Details PE The patient is a 39-year-old female presenting with bowel movement problems and associated anal bleeding. Anal Fissure: - Has been experiencing bowel movement i ssues for the past month, with blood noticed accompanying bowel movements. - Blood was bright red, and the most rec ent incident involved more blood than usual. - Patient reports pain during bowel move ments, though the stool is not constipated, described as normal or watery. - Experiencing anal fissures since last weekend with increased bleeding. - Incident is painful; occurring daily o r every other day. Hemorrhoids: - Patient has a history of hemorrhoids, confirmed both by patient history and during previous visits. - Patient would like to see rectal surge ry for consultation, ref placed Surgical History: - LEEP procedure scheduled in two weeks. 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 - Patient lacks documented Gardasil vacc ination details; suggested checking state records with a pharmacist. - Flu vaccination discussed. [facility] - Dr. Love Sanchez performs breast exams and mammogram scheduled. Patient Instructions - Appointment for a colorectal specialis t to be scheduled. - Blood test ordered for evaluation foll owing this visit. - Receive tetanus vaccination today if c onsented. PE in 1 year Review of Systems - General: No fever no chills - Neurological: No headaches no dizzin ess - Ear nose throat: No sore throat no hearing difficulty no ear pain - Cardiovascular: No syncope, no chest pain, no palpitations - Gastrointestinal: No nausea vomiting - Endocrine: No polyuria polydipsia no heat intolerance - Genitourinary: No dysuria - Skin: No new complaints Physical Exam General: Cooperative, healthy appearing, comfortable, no acute distress Orientation: Patient oriented x3 Head: Normal to inspection Ears: Within normal limit visually, no difficulty hearing Nose: Normal external nose present Face and sinus: Normal facial exam Eyes: Appearance normal, extraocular movement intact pupils reactive Neck: Normal visual inspection and supple Respiratory: Normal respiratory effort and able to speak in complete sentences. Clear to auscultation, no stridor Cardiovascular: S1 and S2 RRR GI: Normal to inspection. Soft to palpation and nontender Skin: Turgor normal, no acute findings Neuro: Patient oriented x3, motor sensory intact, balance intact, tandem pass Extremities: Normal to inspection, ROM intact PFSH Medical History Dysplasia of cervix, low grade (TONI 1) Surgical History History of section History of tonsillectomy Family History Father Hepatitis HIV (human immunodeficiency virus infection) Mother No problems noted. Maternal Grandmother Diabetes mellitus Skin cancer Maternal Grandfather Throat cancer Paternal Grandmother Diabetes mellitus Paternal Grandfather Diabetes mellitus Sister No problems noted. Sister No problems noted. Social History Alcohol intake: current Alcohol intake frequency: holidays/special occasions only Patient Tobacco Use Status: Never used Tobacco service: No Current occupational status: employed Current occupation: [employer] Current occupational exposures/hazards: No Cognitive needs: No Hearing needs: No Vision needs: No Female Reproductive History Menstrual Age of Menarche: 12 Questionnaire PHQ-9 Over the last 2 weeks, how often have you been bothered by any of the following problems? 1. Little interest or pleasure in doing things: several days 2. Feeling down, depressed, or hopeless: not at all 3. Trouble falling or staying asleep, or sleeping too much: not at all 4. Feeling tired or having little energy: several days 5. Poor appetite or overeating: not at all 6. Feeling bad about yourself - or that you are a failure or have let yourself or your family down: not at all 7. Trouble concentrating on things, such as reading the newspaper or watching television: not at all 8. Moving or speaking so slowly that other people could have noticed. Or the opposite - being so fidgety or restless that you have been moving around a lot more than usual: not at all 9. Thoughts that you would be better off or of hurting yourself in some way: not at all Total score: 2 Depression Screening Interpretation: Negative Depression Screening Done: Yes 26783 - PHQ-9 Billing: Yes Source: Developed by Drs. Stu Pace, Lia Flor, Charles Centeno and colleagues, with an educational jose from [employer]. Thrive Questionnaire Date Thrive assessed: 10/27/24 I am a: Patient What is your living situation today?: I have a steady place to live Within the past 12 months, did the food you bought not last and you didn't have the money to get more?: Never true Within the past 12 months, did you worry whether your food would run out before you got money to buy more?: Never true Do you have trouble paying for medicines?: No Do you have trouble getting transportation to medical appointments?: No Do you have trouble paying your heating and electricity bill?: No Do you have trouble taking care of your child, family member or friend?: No Do you have trouble with day-to-day activities such as bathing, preparing meals, shopping, managing finances, etc.?: No Are you currently unemployed and looking for a job?: No Are you interested in more education?: No Please select the resources that you would like help with: None Currently or been in a relationship where the following occur: No concerns repo rted THRIVE Score: 0 AUDIT C Alcohol Use Questionnaire (AUDIT-C) 1. How often do you have a drink containing alcohol?: Monthly or less 2. How many drinks containing alcohol do you have on a typical day when you are drinking?: 1 or 2 3. How often do you have six or more drinks on one occasion?: Never Total Score: 1 Score Reviewed/Action Taken: Yes QUAN-7 AMB Questionnaire QUAN-7 Date QUAN - 7 assessed: 10/27/24 Feeling nervous, anxious, or on edge: 0 = Not at all Not being able to stop or control worryin = Not at all Worrying too much about different things: 0 = Not at all Trouble relaxin = Not at all Being so restless that it is hard to sit still: 0 = Not at all Becoming easily annoyed or irritable: 1 = Several days Feeling afraid as if something awful might happen: 0 = Not at all Total QUAN-7 score (0-4 normal; 5-9 mild; 10-14 moderate; 15-21 severe): 1 Source: Developed by Drs. Stu Pace, Lia Flor, Charles Centeno and colleagues, with an educational jose from [employer]. QUAN-7 Assessment Billing QUAN-7 Assessment Tool: QUAN-7 Assessment 42086 Physical exam (Primary Care) Vital Signs: Last Vital Signs Pulse 70 10/27/24 11:23 BP 118/76 10/27/24 11:23 Pulse Ox 97 10/27/24 11:23 BMI result Body Mass Index 27.1 Tobacco/Smoking Status: Tobacco use Status Tobacco use date assessed 10/27/24 10/27/24 11:28 Patient Tobacco Use Status Never used Tobacco 10/27/24 11:28 PHQ-9: PHQ-9 Score PHQ-9: Total score 2 10/27/24 11:54 Depression Screening Interpretation: Negative Thrive Assessment: Date of Thrive Assessment Date Thrive assessed 10/27/24 10/27/24 11:28 Currently or been in a relationship where the following occur: No concerns reported Immunizations Boostrix Tdap 2.5 Lf unit-8 mcg-5 Lf/0.5 mL intramuscular syringe Performing Provider: Nedra York MD Performing Location: [facility] Administered by: Cal Beauchamp CMA on 10/27/24 11:54 Dose Route Admin Location Dispensed Lot Number Expiration Date [facility] [employer] 0.5 mL IM Left Deltoid 0.5 mL [id number] 12/03/26 [id number] Turned On Digital Total Dispensed Waste 0.5 mL 0 % VIS Given Date VIS Provided VIS Publication Date 10/27/24 Single Vaccine 20 Eligibility Eligibility Date Funding Source Not [facility] Eligible 10/27/24 Private Coding Level of Care Code Est Pt Level 3 (81235) Est Pt Prev Care 18-39y(69253) Diagnoses Encounter for general adult medical examination with abnormal findings Z00.01 Anal fissure K60.2 Rectal bleed K62.5 Other hemorrhoids K64.8 Hemorrhoid type: other Additional Codes QUAN-7 Assessment Billing - QUAN-7 Assessment Tool: QUAN-7 Assessment 04861 ([id number]) PHQ-9 - 08561 - PHQ-9 Billing: Yes ([id number]) Assessment & Plan Assessment & Plan (1) Encounter for general adult medical examination with abnormal findings: Code(s): Z00.01 - Encounter for general adult medical examination with abnormal findings Category: Medical (2) Anal fissure: Code(s): K60.2 - Anal fissure, unspecified Category: Medical (3) Rectal bleed: Code(s): K62.5 - Hemorrhage of anus and rectum Category: Medical (4) Hemorrhoids: Code(s): K64.9 - Unspecified hemorrhoids Category: Medical Qualifiers: Hemorrhoid type: other Qualified Code(s): K64.8 - Other hemorrhoids Plan PE The patient is a 39-year-old female presenting with bowel movement problems and associated anal bleeding. Anal Fissure: - Has been experiencing bowel movement issues for the past month, with blood noticed accompanying bowel movements. - Blood was bright red, and the most recent incident involved more blood than usual. - Patient reports pain during bowel movements, though the stool is not constipated, described as normal or watery. - Experiencing anal fissures since last weekend with increased bleeding. - Incident is painful; occurring daily or every other day. Hemorrhoids: - Patient has a history of hemorrhoids, confirmed both by patient history and during previous visits. - Patient would like to see rectal surgery for consultation, ref placed Surgical History: - LEEP procedure scheduled in two weeks. 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 - Patient lacks documented Gardasil vaccination details; suggested checking state records with a pharmacist. - Flu vaccination discussed. [facility] - Dr. Love Sanchez performs breast exams and mammogram scheduled. Patient Instructions - Appointment for a colorectal specialist to be scheduled. - Blood test ordered for evaluation following this visit. - Receive tetanus vaccination today if consented. PE in 1 year Orders: Orders Complete Blood Count Auto Diff Today K60.2 - Anal fissure, unspecified, K62.5 - Hemorrhage of anus and rectum, Z00.01 - Encounter for general adult medical examination with abnormal findings Vitamin D 25-OH (D2 and D3) Today K60.2 - Anal fissure, unspecified, K62.5 - Hemorrhage of anus and rectum, Z00.01 - Encounter for general adult medical examination with abnormal findings TDaP Immunization Today Z23 - Encounter for immunization Comprehensive [place]. Panel Fast Today K60.2 - Anal fissure, unspecified, K62.5 - Hemorrhage of anus and rectum, Z00.01 - Encounter for general adult medical examination with abnormal findings Lipid Panel Today K60.2 - Anal fissure, unspecified, K62.5 - Hemorrhage of anus and rectum, Z00.01 - Encounter for general adult medical examination with abnormal findings Referrals Colon & Rectal Referral K60.2 - Anal fissure, unspecified, K62.5 - Hemorrhage of anus and rectum
== END 2024-10-27 12:06 | disposition home or self-care (01) ==
LOC: HO.HMCC 11:21
PROVIDERS: PCP Internal Medicine; Visit Provider Internal Medicine
DX: Z00.01 Encounter for general adult medical examination with abnormal findings (principal); K60.2 Anal fissure, unspecified; K62.5 Hemorrhage of anus and rectum; K64.8 Other hemorrhoids; Z23 Encounter for immunization

== ENCOUNTER 2024-11-12 09:59 | Day surgery (SDC) | payer OTHER, SELFPAY ==
--- OUTSIDE RECORDS SUMMARY | 2024-10-27 11:32 | XMS_ITS | Patient Health Record ---
Author Organization [facility] Address [address] [address] Support Name Relationship Address Phone DIANA KIMBALL Guarantor Unknown [phone] Reason For Referral No Information Plan Of Treatment No Information
[2024-11-10 09:43] VITALS: BMI 26.6
--- NOTE | 2024-11-10 13:59 | HO.ANESPROP2 ---
Documented by User: Ester Martinez NP 11/10/24 14:00 HPI - Anesthesia Eval Consult details Narrative: 39 yr old female for LEEP,poss loop electric excision,poss loop electrical,cone and post endocervical curettage PMFSH Active Problems Active Problems: All Active Problems Hemorrhoids (Acute) Rectal bleed (Acute) Anal fissure (Acute) Dysplasia of cervix, low grade (TONI 1) (Acute) Nephrolithiasis (Acute) LGSIL on Pap smear of cervix (Acute) Family planning (Acute) Thrombosed external hemorrhoid (Acute) Angiolipoma of left kidney (Acute) Renal calculus, left (Acute) Recurrent UTI (Acute) Urine incontinence (Acute) Uterine myoma (Acute) UTI (urinary tract infection) (Acute) Dysuria (Acute) Fibrocystic breast changes of both breasts (Acute) Lump of right breast (Acute) Myoma (Acute) Well woman exam (Acute) Routine gynecological examination (Acute) Paresthesias (Acute) Encounter for general adult medical examination with abnormal findings (Acute) UTI (urinary tract infection) (Acute) Past Medical History Medical History Dysplasia of cervix, low grade (TONI 1) Family History Family History Father Hepatitis HIV (human immunodeficiency virus infection) Mother No problems noted. Maternal Grandmother Diabetes mellitus Skin cancer Maternal Grandfather Throat cancer Paternal Grandmother Diabetes mellitus Paternal Grandfather Diabetes mellitus Sister No problems noted. Sister No problems noted. Surgical History Surgical History History of section History of tonsillectomy Social History Social History Alcohol intake: current Alcohol intake frequency: does not drink Patient Tobacco Use Status: Never used Tobacco Have you been hit, kicked, punched, or otherwise hurt by someone within the past year? If so, by whom?: No Are you DNR?: No Advance Directives: No Advance Directives Information Provided: Yes service: No Current occupational status: employed Current occupation: [employer] Current occupational exposures/hazards: No Cognitive needs: No Hearing needs: No Vision needs: No Meds Allergies Allergy/AdvReac Type Severity Reaction Status Date / Time No Known Allergies (No Known Allergy Verified 10/27/24 11:24 Allergies*) Home Medications ?Medication ?Instructions ?Recorded ?Confirmed ?Last Taken ?Type No Known Home Meds 08/17/24 10/27/24 Unknown History Exam Height,Weight and Vital Signs: Height 5 ft 3 in Weight 68.039 kg Documented by User: Franck Cole MD 11/12/24 10:58 PMFSH Past Medical History Medical History Dysplasia of cervix, low grade (TONI 1) Family History Family History Father Hepatitis HIV (human immunodeficiency virus infection) Mother No problems noted. Maternal Grandmother Diabetes mellitus Skin cancer Maternal Grandfather Throat cancer Paternal Grandmother Diabetes mellitus Paternal Grandfather Diabetes mellitus Sister No problems noted. Sister No problems noted. Family history of problems with anesthesia: No Surgical History Surgical History History of section History of tonsillectomy History of Problems with Anesthesia: No Social History Social History Alcohol intake: current Alcohol intake frequency: does not drink Patient Tobacco Use Status: Never used Tobacco Have you been hit, kicked, punched, or otherwise hurt by someone within the past year? If so, by whom?: No Are you DNR?: No Advance Directives: No Advance Directives Information Provided: Yes service: No Current occupational status: employed Current occupation: [employer] Current occupational exposures/hazards: No Cognitive needs: No Hearing needs: No Vision needs: No Meds Allergies Allergy/AdvReac Type Severity Reaction Status Date / Time No Known Allergies (No Known Allergy Verified 10/27/24 11:24 Allergies*) Home Medications ?Medication ?Instructions ?Recorded ?Confirmed ?Last Taken ?Type No Known Home Meds 08/17/24 10/27/24 Unknown History Exam Exam Date and Time: 11/12/2024 Airway Mallampati Class: III TM Dist: >3cm Neck ROM: Full Loose/Missing/Broken Teeth: No Heart: rrr Lungs: ctab vesicular Assessment and Plan Assessment Anesthesia Assessment: Anesthesia Plan Discussed and Chart Reviewed Final Anesthetic Review Family History of Problems with Anesthesia: No History of Problems with Anesthesia: No NPO: Yes ASA Class: II Final Preanesthetic Review: No Changes in Pt Med Stat, Meds/Allgs Chart Reviewed, Consent Obtained/Reviewed and Anes Risks/Benef Reviewed Patient Risk: Low Procedure Risk: Low Anesthetic Plan Anesthetic Plan: GA Disposition: Standard PACU
[2024-11-12 10:30] VITALS: BP 117/71; PULSE 78; RESP 18; TEMP 36.6; O2SAT 98; BMI 27.3
[2024-11-12 10:35] LABS: UPreg QC Valid YES
[2024-11-12] MEDS: Lactated Ringers 1,000 ML 100 ML IVCONT (10:43)
--- NOTE | 2024-11-12 11:41 | MHC.SHP ---
Pre-Procedural Eval Section A - 24 Hr Update-Section A only Date of Service: 11/12/24 The patient is an INPATIENT: No Changes since office visit: No Cold of Flu in the past 2 weeks, No New Medical Problems, No Changes in Medication and No Patient answered all questions The patient has been examined within 24 hours of the surgical procedure. The History & Physical has been completed within 30 days and I have reviewed it.: Yes Section B - Complete if H&P > 30 days Chief Complaint: Mild cervical dysplasia Allergies: Allergies Allergy/AdvReac Type Severity Reaction Status Date / Time No Known Allergies (No Known Allergy Verified 10/27/24 11:24 Allergies*) Plan Diagnosis/Plan: Unchanged I have reviewed the history and physical and performed a pertinent physical examination on my patient. No changes have occurred unless specified. Time Spent With Patient Time: Total time managing care of this patient today ____ minutes.
--- NOTE | 2024-11-12 12:28 | P.BOP_ITS ---
Brief Operative Note Date of Service: 11/12/24 Pre-op diagnosis: Discrepancy between cytology (LSIL can not exclude high-grade RANGEL) and pathology (TONI 1) Post-op diagnosis: same Procedure: LEEP CONE with post CONE ECC Surgeon: Ganga Nick MD Anesthesia: GLMA and other (Paracervical block) Was an Machine Cementer used for this Procedure?: No Estimated blood loss (mL): 0 Pathology: other (Cervical cone, top-hat, Post cone ECC) Condition: stable Disposition: other (Home)
--- NOTE | 2024-11-12 12:29 | W.PM.OPN ---
Operative Note Operative Note Date of Service: 11/12/24 Narrative: Pre op diagnosis: Discrepancy between cytology (LSIL can not exclude high-grade RANGEL) and pathology (TONI 1) Operation: Colposcopy, Loop electrical excision procedure cone, top hat endocervical excision, post cone ECC Postop diagnosis: the same Quantitative blood loss: 50 cc Surgeon: Ganga Nick MD, FACOG Vp Customer Development: None Pathology: Cervical cone, top-hat endo cervical excision, endo cervical curettage Complications: none Anesthesia: GLMA and Para cervical block Procedure: The patient was put in a dorsal lithotomy position, scrubbed and draped in the usual sterile fashion. A speculum was inserted inside the patient's vagina. The cervix is assessed using the colposcope with acetic acid , the lesions were seen, and at least 1 cm of the squamocolumnar junction was observed. 20 x 5 mm size loop was selected based upon the diameter of the lesion. Lugol solution was used to outline the lesions and area of the transformation zone order to be removed 10 cc of xylocaine with epinephrine were injected submucosally into the surface of the cervix (ectocervix) at the 3, 6, 9, and 12 o'clock positions. The electrosurgical generator is set at 40 kelly on blend 1. The loop is carefully passed simultaneously around and under the transformation zone, in order to ensure excising it making sure the lesion is at least 5 mm far from the specimen margins . The loop was allowed to glide through the cervix from one side to the other, allowing the cutting current to divide the tissue. Additional tissue was excised from this area with a smaller-diameter loop , endo cervical top-hat excision was performed An endo cervical curettage is performed following completion of excision, and hemostasis is obtained with a Ball electrode or regular tip cautery. At the end, Monsel's solution was applied to the cone bed. The patient tolerated the procedure well and, all instruments were taken out of the patient vaginal cavity, and the patient was transferred to the PACU in stable condition.
[2024-11-12 12:34] VITALS: BP 100/58; PULSE 83; RESP 19; TEMP 36.3; O2SAT 93
[2024-11-12 12:39] VITALS: BP 113/65; PULSE 88; RESP 12; O2SAT 97
[2024-11-12 12:44] VITALS: BP 108/66; PULSE 72; RESP 12; O2SAT 96
[2024-11-12 12:49] VITALS: BP 103/65; PULSE 73; RESP 13; O2SAT 96
[2024-11-12 13:05] VITALS: BP 106/66; PULSE 73; RESP 18; TEMP 36.4; O2SAT 97
== END 2024-11-12 13:20 | disposition home or self-care (01) ==
PROVIDERS: PCP Internal Medicine; Visit Provider Obstetrics & Gynecology
PROC: 0UBC7ZZ Excision of Cervix, Via Natural or Artificial Opening (ICD-10-PCS; CPT 57522; principal; 2024-11-12 13:20)
DX: N87.0 Mild cervical dysplasia (principal)
CPT/HCPCS: 57461; 81025; 88305; 88307; 88341; 88342; J1100; J1885; J2003; J2004; J2405; J2704; J3010

== ENCOUNTER → 2024-11-12 09:59 | Outpatient (BNV) | payer OTHER, SELFPAY | PROVIDERS: PCP Internal Medicine; Visit Provider Obstetrics & Gynecology | DX: N87.0 Mild cervical dysplasia (principal) | CPT/HCPCS: 57461 ==

== ENCOUNTER 2024-12-22 11:15 | Outpatient (AMB) | payer OTHER, SELFPAY ==
--- NOTE | 2024-12-22 11:32 | A.OFFVIS_ITS ---
Vital Signs 12/22/24 11:34 Height 5 ft 3 in Weight 151 lb BMI 26.7 BP 112/70 Intake Visit Reasons: post op Architectural Practice Manager Required: No Information Interpreted: non-clinical & clinical Accompanied by: Self / Same As Patient Allergies No Known Allergies (No Known Allergies*) Allergy (Verified 12/22/24 11:38) Is last menstrual period known: Yes Last menstrual period: 12/16/24 HPI Comments Details: The patient is presenting for follow-up post LEEP cone. The patient has no complaints. The pathology showed the following: A. Cervix, cone excision: Inflamed cervical transformation zone mucosa with reactive changes. B. Cervix, top hat, excision: - Low-grade squamous intraepithelial lesion (TONI 1). - Background inflamed cervical transformation zone mucosa. C. Endocervix, post cone curettage: Superficial fragments of inflamed endocervical mucosa with squamous metaplasia and reactive changes; no atypia identified [facility] Medical History Dysplasia of cervix, low grade (TONI 1) Surgical History History of section History of tonsillectomy Family History Father Hepatitis HIV (human immunodeficiency virus infection) Mother No problems noted. Maternal Grandmother Diabetes mellitus Skin cancer Maternal Grandfather Throat cancer Paternal Grandmother Diabetes mellitus Paternal Grandfather Diabetes mellitus Sister No problems noted. Sister No problems noted. Social History Alcohol intake: current Alcohol intake frequency: does not drink Patient Tobacco Use Status: Never used Tobacco service: No Current occupational status: employed Current occupation: [employer] Current occupational exposures/hazards: No Cognitive needs: No Hearing needs: No Vision needs: No Female Reproductive History Menstrual Age of Menarche: 12 Date of last menstrual period: 12/16/24 Review of Systems Const All systems reviewed & are unremarkable except as noted in HPI and below Reports as per HPI and Reports no additional complaints GI Reports no additional complaints Reports no additional complaints Physical Exam Vital Signs: Last Vital Signs BP 112/70 12/22/24 11:34 BMI result Body Mass Index 26.7 Assessment & Plan Assessment & Plan (1) LGSIL on Pap smear of cervix: Comment: Can not exclude HGSIL HPV positive, HPV 16/18 negative Status post LEEP cone with post cone ECC, TONI 1 Code(s): R87.612 - Low grade squamous intraepithelial lesion on cytologic smear of cervix (LGSIL) Category: Medical Plan: Discussed with the patient the results the pathology showing TONI 1, in addition explained to the patient the sensitivity, specificity, false-positive and false- negative rate. Recommended Co testing in 1 year. All questions answered, the patient verbalized understood Coding Level of Care Code Est Pt Level 3 (09829) Diagnoses LGSIL on Pap smear of cervix R87.612
[2024-12-22 11:34] VITALS: BP 112/70; BMI 26.7
--- OUTSIDE RECORDS SUMMARY | 2024-12-22 13:58 | XMS_ITS | Patient Health Record ---
Author Organization [facility] Address [address] [address] Support Name Relationship Address Phone DIANA KIMBALL Guarantor Unknown [phone] Reason For Referral No Information Plan Of Treatment No Information
== END 2024-12-22 11:45 | disposition home or self-care (01) ==
LOC: HO.HWS 11:16
PROVIDERS: PCP Internal Medicine; Visit Provider Obstetrics & Gynecology
DX: R87.612 Low grade squamous intraepithelial lesion on cytologic smear of cervix (LGSIL) (principal)
CPT/HCPCS: 99213

== ENCOUNTER 2024-12-23 14:54 | Outpatient (REF) | payer OTHER, SELFPAY ==
--- NOTE | ~2024-12-23 | US_ITS ---
EXAMINATION: US PELVIS CLINICAL INFORMATION: Linear myelopathy uterus. COMPARISON: Ultrasound pelvis 06/26/2022 TECHNIQUE: Ultrasound of the pelvis is performed using both transabdominal and transvaginal transducers along with Doppler. Transvaginal imaging is performed due to inadequate visualization transabdominally. FINDINGS: Uterus: The uterus is anteverted , retroflexed and measures 8.0 4.2 x 5.3 cm. The double wall endometrial thickness is 5.0 mm. The uterus is smooth in contour and has normal myometrial echogenicity. There is submucosal fundal hypoechoic fibroid measuring 1.6 x 1.7 x 2.0 cm. Previously it measured 1.3 x 1.1 x 0.9 cm. There are small nabothian cyst seen in the cervix. Adnexa: Both ovaries are visualized. There is normal color flow to the adnexa. There is no ovarian torsion. There is no pelvic ascites or fluid collection. Right ovary measures 3.8 x 1.6 x 2.8 cm. Volume 8.9 mL. There are several anechoic cysts seen with a dominant follicle measuring 1.5 x 1.1 x 1.6 cm. There are several echogenic calcifications. Previously right ovary measured 4.0 x 2.3 x 2.5 cm. Left ovary measures 4.0 x 1.7 x 2.7 cm. Volume 9.6 mL. . Echogenic calcification seen. Previously left ovary measured 2.5 x 1.8 x 2.5 cm. US/US pelvic and transvaginal IMPRESSION: Stable fundal submucosal uterine fibroid. Right ovarian simple cysts with a dominant follicle measuring 1.5 cm. There is bilateral echogenic calcification ovaries. Otherwise left ovary is unremarkable. Small nabothian cyst seen in cervix. Electronically signed by: Pj Delatorre MD 12/23/2024 04:14 PM [facility] [place], [place]
--- OUTSIDE RECORDS SUMMARY | 2024-12-23 18:12 | XMS_ITS | Patient Health Record ---
Author Organization [facility] Address [address] [address] Support Name Relationship Address Phone DIANA KIMBALL Guarantor Unknown [phone] Reason For Referral No Information Plan Of Treatment No Information
== END 2024-12-23 14:55 | disposition home or self-care (01) ==
LOC: HO.US 14:54
PROVIDERS: PCP Internal Medicine; Visit Provider Obstetrics & Gynecology
DX: D25.9 Leiomyoma of uterus, unspecified (principal)
CPT/HCPCS: 76830; 76856

== ENCOUNTER → 2024-12-23 14:55 | Outpatient (BNV) | payer OTHER, SELFPAY | PROVIDERS: PCP Internal Medicine; Visit Provider Radiology Diagnostic Radiology | DX: D25.0 Submucous leiomyoma of uterus (principal); N83.291 Other ovarian cyst, right side | CPT/HCPCS: 76830; 76856 ==

== ENCOUNTER 2025-01-10 09:27 | Outpatient (AMB) | payer OTHER, SELFPAY ==
--- NOTE | 2025-01-10 09:28 | A.OFFVIS_ITS ---
Intake Visit Reasons: ultrasound results Allergies No Known Allergies (No Known Allergies*) Allergy (Verified 12/22/24 11:38) HPI Comments Details: The patient is scheduled a telehealth visit for pelvic ultrasound follow-up regarding uterine myomas seen on pelvic ultrasound in 09/01. Recent pelvic ultrasound showed the following: Uterus: The uterus is anteverted , retroflexed and measures 8.0 4.2 x 5.3 cm. The double wall endometrial thickness is 5.0 mm. The uterus is smooth in contour and has normal myometrial echogenicity. There is submucosal fundal hypoechoic fibroid measuring 1.6 x 1.7 x 2.0 cm. Previously it measured 1.3 x 1.1 x 0.9 cm. There are small nabothian cyst seen in the cervix. Adnexa: Both ovaries are visualized. There is normal color flow to the adnexa. There is no ovarian torsion. There is no pelvic ascites or fluid collection. Right ovary measures 3.8 x 1.6 x 2.8 cm. Volume 8.9 mL. There are several anechoic cysts seen with a dominant follicle measuring 1.5 x 1.1 x 1.6 cm. There are several echogenic calcifications. Previously right ovary measured 4.0 x 2.3 x 2.5 cm. Left ovary measures 4.0 x 1.7 x 2.7 cm. Volume 9.6 mL. . Echogenic calcification seen. Previously left ovary measured 2.5 x 1.8 x 2.5 cm. US/US pelvic and transvaginal IMPRESSION: Stable fundal submucosal uterine fibroid. Right ovarian simple cysts with a dominant follicle measuring 1.5 cm. There is bilateral echogenic calcification ovaries. Otherwise left ovary is unremarkable. Small nabothian cyst seen in cervix. COUNT INCLUDES THE [facility] Medical History Dysplasia of cervix, low grade (TONI 1) Surgical History History of section History of tonsillectomy Family History Father Hepatitis HIV (human immunodeficiency virus infection) Mother No problems noted. Maternal Grandmother Diabetes mellitus Skin cancer Maternal Grandfather Throat cancer Paternal Grandmother Diabetes mellitus Paternal Grandfather Diabetes mellitus Sister No problems noted. Sister No problems noted. Social History Alcohol intake: current Alcohol intake frequency: does not drink Patient Tobacco Use Status: Never used Tobacco service: No Current occupational status: employed Current occupation: [employer] Current occupational exposures/hazards: No Cognitive needs: No Hearing needs: No Vision needs: No Female Reproductive History Menstrual Age of Menarche: 12 Review of Systems Const All systems reviewed & are unremarkable except as noted in HPI and below Reports as per HPI and Reports no additional complaints GI Reports no additional complaints Reports no additional complaints Telehealth Telehealth Telehealth Platform: [place] Location of provider rendering services: practice address Location of patient: address on file Patient Identification confirmed using: Name, : Yes Telehealth method: video Patient verbally consented to treatment: Yes Patient verbally consented to billing insurance company: Yes Patient informed of any privacy concerns related to visit: Yes Minutes spent on Phone/Video with Pt.: 2 Assessment & Plan Assessment & Plan (1) Uterine myoma: Code(s): D25.9 - Leiomyoma of uterus, unspecified Category: Medical Plan: Discussed with the patient the findings on pelvic ultrasound & the risk of myosarcoma; in addition reviewed with the patient that malignancy and pre malignancy cannot be ruled out without hysterectomy for pathological evaluation ; furthermore, explained to the patient the limitation of pelvic ultrasound and endometrial biopsy in the setting. Discussed with the patient the options of treatment including expectant management versus hysterectomy; the pros and cons, risks benefits of each approach were discussed with the patient including the fact that in cases of myosarcoma, surgical treatment can lead to early diagnosis and positively affects the prognosis; after further discussion, the patient decided to proceed with expectant management. Will repeat pelvic ultrasound periodically. Instructions given to patient to call in case any of the following occurs: pressure symptoms, abnormal uterine bleeding, pelvic pain; and to schedule a 12- months pelvic ultrasound (order placed) and a follow-up appointment . All questions answered, the patient verbalized understanding and agreed with the plan . I spent a total of 20 minutes reviewing the chart, talking to the patient via video and documenting in the medical record. Orders: Orders US pelvic and transvaginal 1 Year D25.9 - Leiomyoma of uterus, unspecified Coding Level of Care Code Tele Est Pt Level 3 (60004) Diagnoses Uterine myoma D25.9
--- OUTSIDE RECORDS SUMMARY | 2025-01-10 11:11 | XMS_ITS | Patient Health Record ---
Author Organization [facility] Address [address] [address] Support Name Relationship Address Phone DIANA KIMBALL Guarantor Unknown [phone] Reason For Referral No Information Plan Of Treatment No Information
== END 2025-01-10 09:44 | disposition home or self-care (01) ==
LOC: HO.HWS 09:27
PROVIDERS: PCP Internal Medicine; Visit Provider Obstetrics & Gynecology
DX: D25.9 Leiomyoma of uterus, unspecified (principal)
CPT/HCPCS: 99213

== ENCOUNTER 2025-02-04 08:52 | Outpatient (REF) | payer OTHER, SELFPAY ==
--- NOTE | ~2025-02-04 | MM_ITS ---
EXAMINATION: MM SCREENING DIGITAL BREAST TOMOSYNTHESIS, BILATERAL CLINICAL INFORMATION: Screening. Asymptomatic. COMPARISON: Comparison made to multiple prior, most recent May 29, 2023, and most remote May 09, 2020. TECHNIQUE: Digital breast tomosynthesis is performed in mediolateral oblique and craniocaudal views along with computer-aided detection (CAD). Synthesized 2D images are generated from the tomosynthesis. FINDINGS: BREAST COMPOSITION: The breasts are heterogeneously dense, which may obscure small masses. BILATERAL BREASTS: No significant masses, suspicious calcifications or other abnormalities are seen in either breast. MM/MM tomosynthesis screening BI IMPRESSION: BILATERAL BREASTS: Negative, no mammographic evidence of malignancy. Normal interval follow-up is recommended in 12 months. ASSESSMENT: BI-RADS: Category 1: Negative RECOMMENDATION: Routine annual mammography screening. FOLLOW-UP: 1 year F/U This examination should not preclude the clinical evaluation of a suspicious palpable abnormality. This patient's information was entered into a reminder system with a target due date for their next mammogram. Electronically signed by: Nelia Potter MD 02/05/2025 06:00 PM [place]
--- OUTSIDE RECORDS SUMMARY | 2025-02-04 08:55 | XMS_ITS | Patient Health Record ---
Author Organization [facility] Address [address] [address] Support Name Relationship Address Phone DIANA KIMBALL Guarantor Unknown [phone] Reason For Referral No Information Plan Of Treatment No Information
== END 2025-02-04 08:53 | disposition home or self-care (01) ==
LOC: HO.MAMMO 08:52
PROVIDERS: PCP Internal Medicine; Visit Provider Obstetrics & Gynecology
DX: Z12.31 Encounter for screening mammogram for malignant neoplasm of breast (principal)
CPT/HCPCS: 77063; 77067

== ENCOUNTER → 2025-02-04 09:00 | Outpatient (BNV) | payer OTHER, SELFPAY | PROVIDERS: PCP Internal Medicine; Visit Provider Radiology Body Imaging | DX: Z12.31 Encounter for screening mammogram for malignant neoplasm of breast (principal) | CPT/HCPCS: 77063; 77067 ==